=== PATIENT | male | born 1990 | race African-American/Black ===

== ENCOUNTER 2018-03-21 15:12 | Inpatient (IN) | payer OTHER ==
[2018-03-21 18:28] VITALS: BMI 24.3
--- NOTE | 2018-03-21 20:44 | HP ---
COWS - Scale Resting Pulse: 0= [place] 80 or Below Sweatin=Flushed/Facial Moisture Restless Observation: 0= Sits Still Pupil Size: 0= Normal to Room Light Bone or Joint Aches: 2= Severe Diffuse Aches Runny Nose/ Eye Tearin= Runny Nose/Eyes GI Upset > 30mins: 2= Nausea/Diarrhea (diarrhea) Tremor Observation: 4= Gross Tremor/Twitching Yawning Observation: 0= None Anxiety or Irritability: 2=Irritable/Anxious Goose Flesh Skin: 3=Piloerection COWS Score: 17 Admission [facility] Chief Complaint: Heroin withdrawal symptoms Allergies/Adverse Reactions: Allergies Allergy/AdvReac Type Severity Reaction Status Date / Time No Known Allergies Allergy Verified 03/21/18 18:55 History of Present Illness: 27 years old male with 10 years of heroin dependence is seeking admission to detox. Patient was in detox here at [facility] in December and reports insignificant period of sobriety. He reports medical history of depression and suicide attempt at age 20. Patient denies suicidal ideation at this time. Exam Limitations: No Limitations - Ebola screening Have you traveled outside of the country in the last 21 days: No Have you had contact with anyone from an Ebola affected area: No Have you been sick,other than usual withdrawal symptoms: No Do you have a fever: No - Review of Systems Constitutional: Chills, Loss of Appetite, Malaise, Changes in sleep EENT: reports: No Symptoms Reported Respiratory: reports: No Symptoms reported Cardiac: reports: No Symptoms Reported GI: reports: Diarrhea (x 2), Poor Appetite, Poor Fluid Intake, Abdominal cramping : reports: No Symptoms Reported Musculoskeletal: reports: No Symptoms Reported Integumentary: reports: Dryness, Flushing Neuro: reports: Tremors Endocrine: reports: No Symptoms Reported Hematology: reports: No Symptoms Reported Psychiatric: reports: Depressed Other Systems: Reviewed and Negative Patient History - Patient Medical History Hx Anemia: No Hx Asthma: No Hx Chronic Obstructive Pulmonary Disease (COPD): No Hx Cardiac Disorders: No Hx Congestive Heart Failure: No Hx Hypertension: No Hx Hypercholesterolemia: No HX Cerebrovascular Accident: No Hx Seizures: No Hx Dementia: No Hx Diabetes: No Hx Gastrointestinal Disorders: No Hx Liver Disease: No Hx Genitourinary Disorders: No Hx Sexually Transmitted Disorders: No Hx Renal Disease (ESRD): No Hx Thyroid Disease: No Hx Human Immunodeficiency Virus (HIV): No (Negative 2016) Hx Hepatitis C: No Hx Depression: Yes (Depakote) Hx Suicide Attempt: No Hx Bipolar Disorder: No Hx Schizophrenia: Yes (Prolexin) - Patient Surgical History Past Surgical History: No Hx Neurologic Surgery: No Hx Cataract Extraction: No Hx Cardiac Surgery: No Hx Lung Surgery: No Hx Abdominal Surgery: No Hx Appendectomy: No Hx Cholecystectomy: No Hx Genitourinary Surgery: No Hx Section: No Hx Orthopedic Surgery: No Anesthesia Reaction: No - PPD History Previous Implant?: Yes Documented Results: Negative w/proof Date: 12/06/17 Results: 0 MM PPD to be Administered?: No - Reproductive History Patient is a Female of Child Bearing Age (11 -55 yrs old): No (Male) - Smoking Cessation Smoking history: Current every day smoker Have you smoked in the past 12 months: Yes Aproximately how many cigarettes per day: 10 Hx Chewing Tobacco Use: No Initiated information on smoking cessation: Yes 'Breaking Loose' booklet given: 03/21/18 - Substance & Tx. History Hx Alcohol Use: No Hx Substance Use: Yes Substance Use Type: Cocaine, Heroin Hx Substance Use Treatment: Yes ([facility]) - Substances Abused Heroin Route: Inhalation Frequency: Daily Amount used: 7 BAGS Age of first use: 17 Date of Last Use: 03/19/18 Crack Amount used: 10 BAGS Age of first use: 15 Date of Last Use: 03/21/18 Marijuana/Hashish Route: Smoking Frequency: Daily Amount used: 2 [place] Age of first use: 15 Date of Last Use: 03/20/18 Family Disease History - Family Disease History Family Disease History: Other: Father (HIV+ - ), Mother (HIV+- ) , Sister (HIV+) Admission Physical Exam BHS - Vital Signs Vital Signs: Vital Signs - 24 hr 03/21/18 18:25 Temperature 98.3 F Pulse Rate 72 Respiratory 18 Rate Blood Pressure 140/76 - Physical General Appearance: Yes: Moderate Distress, Tremorous, Irritable, Anxious HEENTM: Yes: EOMI, Normal ENT Inspection, Normocephalic, Normal Voice, BALTAZAR Respiratory: Yes: Lungs Clear, Normal Breath Sounds, No Respiratory Distress Neck: Yes: Supple Breast: Yes: Breast Exam Deferred Cardiology: Yes: Regular Rhythm, Regular Rate Abdominal: Yes: Normal Bowel Sounds Genitourinary: Yes: Within Normal Limits Back: Yes: Normal Inspection Musculoskeletal: Yes: Within Normal Limits Extremities: Yes: Tremors 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 NML intact, Alert, Normal Mood/Affect Integumentary: Yes: Warm Lymphatic: Yes: Within Normal Limits - Diagnostic (1) Depression Current Visit: Yes Status: Chronic Qualifiers: Depression Type: unspecified Qualified Code(s): F32.9 - Major depressive disorder, single episode, unspecified (2) Cannabis dependence Current Visit: Yes Status: Chronic (3) Cocaine dependence, uncomplicated Current Visit: Yes Status: Chronic (4) Opioid dependence with withdrawal Current Visit: Yes Status: Chronic (5) Nicotine dependence Current Visit: No Status: Chronic Qualifiers: Nicotine product type: cigarettes Substance use status: in withdrawal Qualified Code(s): F17.213 - Nicotine dependence, cigarettes, with withdrawal Cleared for Admission [facility] - Detox or Rehab [facility] Level of Care: Medically Managed Detox Regimen/Protocol: Methadone [facility] Breath Alcohol Content Breath Alcohol Content: 0 Urine Drug Screen - Results Drug Screen Negative: No Urine Drug Screen Results: THC-Marijuana, CHIRAG-Cocaine, OPI-Opiates
[2018-03-21] MEDS ORDERED: MAG HYDROX/AL HYDROX/SIMETH 30 ML UNIT-DOSE CUP PO PRN (20:52)
[2018-03-21] MEDS ORDERED: MAGNESIUM HYDROX 2400MG/30ML ORAL SUSPENSION 30 ML CUP PO PRN (20:52)
[2018-03-21] MEDS ORDERED: guaiFENesin/D-METHORPHAN HB 10 ML UNIT-DOSE CUPS PO PRN (20:52)
[2018-03-21] MEDS ORDERED: LOPERAMIDE HCL 2 MG CAPSULE PO PRN (20:52)
[2018-03-21] MEDS ORDERED: diazePAM 5 MG TABLET PO PRN (20:52)
[2018-03-21] MEDS ORDERED: MENTHOL/PHENOL 1 EACH UD MM PRN (20:52)
[2018-03-21] MEDS ORDERED: ACETAMINOPHEN 325 MG TABLET (FP) PO PRN (20:52)
[2018-03-21] MEDS ORDERED: NICOTINE POLACRILEX 2 MG GUM BC PRN (20:52)
[2018-03-21] MEDS ORDERED: MAGNESIUM CITRATE 300 ML BOTTLE PO PRN (20:52)
[2018-03-21] MEDS ORDERED: IBUPROFEN 400 MG TABLET (FP) PO PRN (20:52)
[2018-03-21] MEDS ORDERED: METHADONE HCL 10 MG TABLET (FOR DETOX USE ONLY) PO ONE ×2 (20:52→23:00)
[2018-03-21] MEDS ORDERED: P-EPHED 60MG/TRIPROLIDI 2.5MG TABLET PO PRN (20:52)
--- NOTE | 2018-03-21 20:58 | HP ---
COWS - Scale Resting Pulse: 0= [place] 80 or Below Sweatin=Flushed/Facial Moisture Restless Observation: 0= Sits Still Pupil Size: 0= Normal to Room Light Bone or Joint Aches: 2= Severe Diffuse Aches Runny Nose/ Eye Tearin= Runny Nose/Eyes GI Upset > 30mins: 2= Nausea/Diarrhea (diarrhea) Tremor Observation: 4= Gross Tremor/Twitching Yawning Observation: 0= None Anxiety or Irritability: 2=Irritable/Anxious Goose Flesh Skin: 3=Piloerection COWS Score: 17 Admission ROS S - HPI Allergies/Adverse Reactions: Allergies Allergy/AdvReac Type Severity Reaction Status Date / Time No Known Allergies Allergy Verified 03/21/18 18:55 - Ebola screening Have you traveled outside of the country in the last 21 days: No Have you had contact with anyone from an Ebola affected area: No Have you been sick,other than usual withdrawal symptoms: No Do you have a fever: No Patient History - Patient Medical History Hx Anemia: No Hx Asthma: No Hx Chronic Obstructive Pulmonary Disease (COPD): No Hx Cardiac Disorders: No Hx Congestive Heart Failure: No Hx Hypertension: No Hx Hypercholesterolemia: No HX Cerebrovascular Accident: No Hx Seizures: No Hx Dementia: No Hx Diabetes: No Hx Gastrointestinal Disorders: No Hx Liver Disease: No Hx Genitourinary Disorders: No Hx Sexually Transmitted Disorders: No Hx Renal Disease (ESRD): No Hx Thyroid Disease: No Hx Human Immunodeficiency Virus (HIV): No (Negative 2016) Hx Hepatitis C: No Hx Depression: Yes (Depakote) Hx Suicide Attempt: No Hx Bipolar Disorder: No Hx Schizophrenia: Yes (Prolexin) - Patient Surgical History Past Surgical History: No Hx Neurologic Surgery: No Hx Cataract Extraction: No Hx Cardiac Surgery: No Hx Lung Surgery: No Hx Breast Surgery: No Hx Breast Biopsy: No Hx Abdominal Surgery: No Hx Appendectomy: No Hx Cholecystectomy: No Hx Genitourinary Surgery: No Hx Section: No Hx Orthopedic Surgery: No Anesthesia Reaction: No - PPD History Previous Implant?: Yes Documented Results: Negative w/proof Date: 12/06/17 Results: 0 MM - Smoking Cessation Smoking history: Current every day smoker Have you smoked in the past 12 months: Yes Aproximately how many cigarettes per day: 10 Hx Chewing Tobacco Use: No Initiated information on smoking cessation: Yes - Substances Abused Heroin Route: Inhalation Frequency: Daily Amount used: 7 BAGS Age of first use: 17 Date of Last Use: 03/19/18 Crack Amount used: 10 BAGS Age of first use: 15 Date of Last Use: 03/21/18 Marijuana/Hashish Route: Smoking Frequency: Daily Amount used: 2 [place] Age of first use: 15 Date of Last Use: 03/20/18 Family Disease History - Family Disease History Family Disease History: Other: Father (HIV+ - ), Mother (HIV+- ) , Sister (HIV+) Admission Physical Exam BHS - Vital Signs Vital Signs: Vital Signs - 24 hr 03/21/18 18:25 Temperature 98.3 F Pulse Rate 72 Respiratory 18 Rate Blood Pressure 140/76 - Diagnostic (1) Depression Current Visit: Yes Status: Chronic Qualifiers: Depression Type: unspecified Qualified Code(s): F32.9 - Major depressive disorder, single episode, unspecified (2) Cannabis dependence Current Visit: Yes Status: Chronic (3) Cocaine dependence, uncomplicated Current Visit: Yes Status: Chronic (4) Opioid dependence with withdrawal Current Visit: Yes Status: Chronic (5) Nicotine dependence Current Visit: No Status: Chronic Qualifiers: Nicotine product type: cigarettes Substance use status: in withdrawal Qualified Code(s): F17.213 - Nicotine dependence, cigarettes, with withdrawal BHS Breath Alcohol Content Breath Alcohol Content: 0 Urine Drug Screen - Results Drug Screen Negative: No Urine Drug Screen Results: THC-Marijuana, CHIRAG-Cocaine, OPI-Opiates
[2018-03-21] MEDS ORDERED: MELATONIN 5 MG TABLETS PO PRN (22:00)
[2018-03-21] MEDS: THIAMINE HCL 100 MG TABLET (FP) PO SCH (22:12)
[2018-03-21 23:59] LABS: URINE APPEARANCE SLCLOUDY; URINE BILIRUBIN NEGATIVE (<2.0 mg/dL); URINE COLOR DKYELLOW; URINE GLUCOSE (UA) NEGATIVE (NEGATIVE); URINE KETONE 1+ (NEGATIVE); URINE LEUK ESTERASE NEGATIVE (NEGATIVE); URINE NITRITE NEGATIVE (NEGATIVE); URINE PROTEIN 1+ (NEGATIVE)
[2018-03-22 00:23] LABS: TRIPLE PHOSPHATE CRYSTAL RARE /hpf (NONE SEEN); URINE MUCUS RARE
[2018-03-22] MEDS ORDERED: METHADONE HCL 10 MG TABLET (FOR DETOX USE ONLY) PO ONE (10:00)
[2018-03-22] MEDS: NICOTINE 14 MG/24 HOURS TOPICAL PATCH TD SCH (10:15)
[2018-03-22] MEDS: PRENATAL VITAMINS W/ FOLIC ACID TABLET (FP) PO SCH (10:15)
[2018-03-22 10:22] LABS: HEMATOCRIT 41.5 % (35.4-49); HEMOGLOBIN 13.3 GM/dL (11.7-16.9); MCH 31.2 pg (25.7-33.7); MCHC 31.9 g/dl (32.0-35.9); MEAN CELL VOLUME 97.6 fl (80-96); MEAN PLT VOLUME 8.3 fl (7.5-11.1); PLATELET COUNT 154 K/MM3 (134-434); RBC 4.25 M/mm3 (4.00-5.60); RDW 12.9 % (11.9-15.9); WHITE BLOOD COUNT 6.1 K/mm3 (4.0-10.0)
--- NOTE | 2018-03-22 11:00 | CONSULT ---
[facility] Psychiatric Consult - Data Date of interview: 03/22/18 Admission source: [facility] Identifying data: Patient is a 27 year old single male, without children, domiciled, unemployed, and is supported by [facility]. This is one of multiple admissions for patient. Patient admitted to for opioid dependence. Substance Abuse History: Smoking Cessation. Smoking history: Current every day smoker. Have you smoked in the past 12 months: Yes. Aproximately how many cigarettes per day: 10. Hx Chewing Tobacco Use: No. Initiated information on smoking cessation: Yes. 'Breaking Loose' booklet given: 03/21/18. - Substance & Tx. History. Hx Alcohol Use: No. Hx Substance Use: Yes. Substance Use Type : Cocaine, Heroin. Hx Substance Use Treatment: Yes ([facility]). - Substances Abused. Heroin. Route: Inhalation. Frequency: Daily. Amount used: 7 BAGS. Age of first use: 17. Date of Last Use: 03/19/18. Crack. Amount used: 10 BAGS. Age of first use: 15. Date of Last Use: 03/21/18. Marijuana /Hashish. Route: Smoking. Frequency: Daily. Amount used: 2 [place]. Age of first use: 15. Date of Last Use: 03/20/18 Medical History: denies. Psychiatric History: Patient reports his first psychiatric contact occuring at the age of 16 after he endorsed auditory hallucinations. He was hospitalized and started on haldol. Patient reports multiple psychiatric hospitalizations, most recently on 02/2018 at [facility] for auditory hallucincations. Patient is also known to [facility]. Patients reports being prescribed prolixen 5mg BID + Cogentin 0.5mg BID + Depakote 500mg BID. Current outpatient psychiatric services is provided at [facility] outpatient clinic. Patient reports one suicide attempt via overdose. At present, he reports feeling well. He denies psychotic, manic, or depressive symptoms. States his current medication regime works well for him. Physical/Sexual Abuse/Trauma History: denies. Mental Status Exam - Mental Status Exam Alert and Oriented to: Time, Place, Person Cognitive Function: Good Patient Appearance: Well Groomed Mood: Euthymic Affect: Mood Congruent Patient Behavior: Cooperative Speech Pattern: Appropriate Voice Loudness: Normal Thought Process: Intact, Goal Oriented Thought Disorder: Not Present Hallucinations: Denies Suicidal Ideation: Denies Homicidal Ideation: Denies Insight/Judgement: Poor Sleep: Poorly Muscle strength/Tone: Normal Gait/Station: Normal Psychiatric Findings - Problem List ([place] 1, 2,3) (1) Cannabis dependence Current Visit: Yes Status: Chronic (2) Opioid dependence with withdrawal Current Visit: Yes Status: Acute (3) Schizoaffective disorder Current Visit: Yes Status: Chronic Comment: As per self-report.Connected to [facility] psychiatric OPD clinic.On medications.Adherence : questionable. (4) Cocaine dependence, uncomplicated Current Visit: Yes Status: Chronic - Initial Treatment Plan Initial Treatment Plan: Psychoeducation provided. Detoxification in progress. Will order Prolixen 5mg BID + Cogentin 0.5mg BID + Depakote 500mg BID. Valproic level ordered for 03/23/18. Benefits and side effects discussed. Verbal consent given.
[2018-03-22 11:28] LABS: ALBUMIN 3.6 g/dl (3.4-5.0); ALK PHOS 45 U/L (45-117); ANION GAP 8 MMOL/L (8-16); BILIRUBIN,TOTAL 0.5 mg/dL (0.2-1); BLOOD UREA NITROGEN 13 mg/dL (7-18); CALCIUM 8.3 mg/dL (8.5-10.1); CHLORIDE 107 mmol/L (98-107); CO2 29 mmol/L (21-32); CREATININE 0.9 mg/dL (0.55-1.3); GLUCOSE,RANDOM 103 mg/dL (74-106); POTASSIUM 4.3 mmol/L (3.5-5.1); SGOT/AST 23 U/L (15-37); SGPT/ALT 34 U/L (13-61); SODIUM 144 mmol/L (136-145); TOT PROT 6.3 g/dl (6.4-8.2)
[2018-03-22] MEDS: BENZTROPINE MESYLATE 1 MG TABLET (FP) PO SCH ×2 (11:48→22:03)
--- NOTE | 2018-03-22 12:00 | PN ---
BHS COWS - Scale Resting Pulse: 0= [place] 80 or Below Sweatin=Flushed/Facial Moisture Restless Observation: 1= Difficult to Sit Still Pupil Size: 0= Normal to Room Light Bone or Joint Aches: 2= Severe Diffuse Aches Runny Nose/ Eye Tearin= Nasal Congestion GI Upset > 30mins: 1= Stomach Cramp Tremor Observation of Outstretched Hands: 2= Slight Tremor Visible Yawning Observation: 2= >3x During Session Anxiety or Irritability: 2=Irritable/Anxious Goose Flesh Skin: 0=Smooth Skin COWS Score: 13 BHS Progress Note (SOAP) Subjective: shakes sweats interrupted sleep agitation chills Objective: 03/22/18 11:59 Vital Signs Temperature 97.7 F 03/22/18 09:32 Pulse Rate 61 03/22/18 09:32 Respiratory Rate 18 03/22/18 09:32 Blood Pressure 117/64 03/22/18 09:32 O2 Sat by Pulse Oximetry (%) Laboratory Tests 03/21/18 03/22/18 03/22/18 22:22 07:00 07:00 WBC 6.1 RBC 4.25 Hgb 13.3 Hct 41.5 MCV 97.6 H MCH 31.2 MCHC 31.9 L RDW 12.9 Plt Count 154 MPV 8.3 Sodium 144 Potassium 4.3 Chloride 107 Carbon Dioxide 29 Anion Gap 8 BUN 13 Creatinine 0.9 Creat Clearance w eGFR > 60 Random Glucose 103 Calcium 8.3 L Total Bilirubin 0.5 AST 23 ALT 34 Alkaline Phosphatase 45 Total Protein 6.3 L Albumin 3.6 Urine Color Dkyellow Urine Appearance Slcloudy Urine pH 7.0 Ur Specific [place] 1.028 Urine Protein 1+ H Urine Glucose (UA) Negative Urine Ketones 1+ H Urine Blood Negative Urine Nitrite Negative Urine Bilirubin Negative Urine Urobilinogen 2.0 Ur Leukocyte Esterase Negative Urine WBC (Auto) 2 Urine RBC (Auto) 1 Triple Phos Crystals Rare Urine Mucus Rare aaox3 ambulating no acute distress increase fluids Assessment: 03/22/18 12:00 withdrawal sx Plan: continue detox increase fluids
--- NOTE | 2018-03-22 13:00 | EKG ---
Test Reason : Blood Pressure : / mmHG Vent. Rate : 056 BPM Atrial Rate : 056 BPM P-R Int : 152 ms QRS Dur : 076 ms QT Int : 396 ms P-R-T Axes : 048 078 043 degrees QTc Int : 382 ms SINUS BRADYCARDIA WITH MARKED SINUS ARRHYTHMIA PREMATURE ATRIAL COMPLEXES OTHERWISE NORMAL ECG Confirmed by MD HARVEY, NNEKA ([id number]) on 03/22/2018 12:59:49 PM Referred By: Confirmed By:NNEKA GABRIEL MD
[2018-03-22] MEDS: DIVALPROEX SODIUM 500 MG TABLET E.C. PO SCH (22:03)
[2018-03-22] MEDS: THIAMINE HCL 100 MG TABLET (FP) PO SCH (22:03)
[2018-03-23] MEDS ORDERED: METHADONE HCL 5 MG TABLET (FOR DETOX USE ONLY) PO ONE (10:00)
[2018-03-23] MEDS: PRENATAL VITAMINS W/ FOLIC ACID TABLET (FP) PO SCH (10:41)
[2018-03-23] MEDS: DIVALPROEX SODIUM 500 MG TABLET E.C. PO SCH ×2 (10:41→22:25)
[2018-03-23] MEDS: NICOTINE 14 MG/24 HOURS TOPICAL PATCH TD SCH (10:42)
[2018-03-23] MEDS: BENZTROPINE MESYLATE 1 MG TABLET (FP) PO SCH ×2 (10:42→22:25)
--- NOTE | 2018-03-23 12:28 | PN ---
BHS COWS - Scale Resting Pulse: 1= [place] 81-100 Sweatin= Chills/Flushing Restless Observation: 0= Sits Still Pupil Size: 0= Normal to Room Light Bone or Joint Aches: 2= Severe Diffuse Aches Runny Nose/ Eye Tearin= Nasal Congestion GI Upset > 30mins: 1= Stomach Cramp Tremor Observation of Outstretched Hands: 2= Slight Tremor Visible Yawning Observation: 2= >3x During Session Anxiety or Irritability: 1=Feels Anxious/Irritable Goose Flesh Skin: 0=Smooth Skin COWS Score: 11 BHS Progress Note (SOAP) Subjective: agitation sweats interrupted sleep body aches Objective: 03/23/18 12:26 Vital Signs Temperature 97.7 F 03/23/18 09:33 Pulse Rate 54 L 03/23/18 09:33 Respiratory Rate 16 03/23/18 09:33 Blood Pressure 108/63 03/23/18 09:33 O2 Sat by Pulse Oximetry (%) Laboratory Tests 03/21/18 03/22/18 03/22/18 22:22 07:00 07:00 WBC 6.1 RBC 4.25 Hgb 13.3 Hct 41.5 MCV 97.6 H MCH 31.2 MCHC 31.9 L RDW 12.9 Plt Count 154 MPV 8.3 Sodium 144 Potassium 4.3 Chloride 107 Carbon Dioxide 29 Anion Gap 8 BUN 13 Creatinine 0.9 Creat Clearance w eGFR > 60 Random Glucose 103 Calcium 8.3 L Total Bilirubin 0.5 AST 23 ALT 34 Alkaline Phosphatase 45 Total Protein 6.3 L Albumin 3.6 Urine Color Dkyellow Urine Appearance Slcloudy Urine pH 7.0 Ur Specific [place] 1.028 Urine Protein 1+ H Urine Glucose (UA) Negative Urine Ketones 1+ H Urine Blood Negative Urine Nitrite Negative Urine Bilirubin Negative Urine Urobilinogen 2.0 Ur Leukocyte Esterase Negative Urine WBC (Auto) 2 Urine RBC (Auto) 1 Triple Phos Crystals Rare Urine Mucus Rare RPR Titer 03/22/18 07:00 WBC RBC Hgb Hct MCV MCH MCHC RDW Plt Count MPV Sodium Potassium Chloride Carbon Dioxide Anion Gap BUN Creatinine Creat Clearance w eGFR Random Glucose Calcium Total Bilirubin AST ALT Alkaline Phosphatase Total Protein Albumin Urine Color Urine Appearance Urine pH Ur Specific [place] Urine Protein Urine Glucose (UA) Urine Ketones Urine Blood Urine Nitrite Urine Bilirubin Urine Urobilinogen Ur Leukocyte Esterase Urine WBC (Auto) Urine RBC (Auto) Triple Phos Crystals Urine Mucus RPR Titer Nonreactive aaox3 ambulating no acute distress 03/23/18 12:29 Assessment: 03/23/18 12:29 mild withdrawal sx Plan: continue detox increase fluids
[2018-03-23] MEDS: THIAMINE HCL 100 MG TABLET (FP) PO SCH (22:25)
[2018-03-24] MEDS ORDERED: METHADONE HCL 5 MG TABLET (FOR DETOX USE ONLY) PO ONE (10:00)
[2018-03-24] MEDS: PRENATAL VITAMINS W/ FOLIC ACID TABLET (FP) PO SCH (10:08)
[2018-03-24] MEDS: NICOTINE 14 MG/24 HOURS TOPICAL PATCH TD SCH (10:08)
[2018-03-24] MEDS: DIVALPROEX SODIUM 500 MG TABLET E.C. PO SCH ×2 (10:08→22:20)
[2018-03-24] MEDS: BENZTROPINE MESYLATE 1 MG TABLET (FP) PO SCH ×2 (10:09→22:20)
--- NOTE | 2018-03-24 10:32 | PN ---
BHS Progress Note (SOAP) Subjective: feeling better little sweats anxiety Objective: 03/24/18 10:31 Vital Signs Temperature 97.9 F 03/24/18 09:55 Pulse Rate 57 L 03/24/18 09:55 Respiratory Rate 17 03/24/18 09:55 Blood Pressure 113/61 03/24/18 09:55 O2 Sat by Pulse Oximetry (%) aaox3 ambulating no acute distress Assessment: 03/24/18 10:32 withdrawal sx Plan: continue detox increase fluids
[2018-03-24] MEDS: THIAMINE HCL 100 MG TABLET (FP) PO SCH (22:19)
[2018-03-25] MEDS ORDERED: METHADONE HCL 10 MG TABLET (FOR DETOX USE ONLY) PO ONE (10:00)
[2018-03-25] MEDS: DIVALPROEX SODIUM 500 MG TABLET E.C. PO SCH ×2 (10:25→22:11)
[2018-03-25] MEDS: PRENATAL VITAMINS W/ FOLIC ACID TABLET (FP) PO SCH (10:25)
[2018-03-25] MEDS: NICOTINE 14 MG/24 HOURS TOPICAL PATCH TD SCH (10:26)
[2018-03-25] MEDS: BENZTROPINE MESYLATE 1 MG TABLET (FP) PO SCH ×2 (10:26→22:11)
--- NOTE | 2018-03-25 10:31 | PN ---
BHS Progress Note (SOAP) Subjective: anxiety feeling better Objective: 03/25/18 10:31 Vital Signs Temperature 97.9 F 03/25/18 09:24 Pulse Rate 59 L 03/25/18 09:24 Respiratory Rate 17 03/25/18 09:24 Blood Pressure 123/71 03/25/18 09:24 O2 Sat by Pulse Oximetry (%) aaox3 ambulating no acute distress Assessment: 03/25/18 10:31 mild withdrawal sx Plan: continue detox increase fluids d/c in am
[2018-03-25] MEDS: THIAMINE HCL 100 MG TABLET (FP) PO SCH (22:10)
[2018-03-26] MEDS ORDERED: METHADONE HCL 5 MG TABLET (FOR DETOX USE ONLY) PO ONE (06:00)
[2018-03-26] MEDS: BENZTROPINE MESYLATE 1 MG TABLET (FP) PO SCH (09:26)
[2018-03-26] MEDS: PRENATAL VITAMINS W/ FOLIC ACID TABLET (FP) PO SCH (09:26)
[2018-03-26] MEDS: NICOTINE 14 MG/24 HOURS TOPICAL PATCH TD SCH (09:26)
[2018-03-26] MEDS: DIVALPROEX SODIUM 500 MG TABLET E.C. PO SCH (09:26)
[2018-03-26 09:30] VITALS: BP 119/57; PULSE 53; TEMP 97.9
== END 2018-03-26 12:13 | disposition home or self-care (01) | DRG 773 ==
LOC: YASAS 15:12 → Y6N 20:24
PROC: HZ2ZZZZ Detoxification Services for Substance Abuse Treatment (ICD-10-PCS; principal; 2018-03-21)
DX: F11.23 Opioid dependence with withdrawal (principal); F14.20 Cocaine dependence, uncomplicated; F12.20 Cannabis dependence, uncomplicated; F17.213 Nicotine dependence, cigarettes, with withdrawal; F25.9 Schizoaffective disorder, unspecified; F32.9 Major depressive disorder, single episode, unspecified; Z91.5 Personal history of self-harm
CPT/HCPCS: 36415; 80053; 80164; 81003; 81015; 85027; 86593; 93005; 93010

== ENCOUNTER 2019-02-06 10:38 | Inpatient (IN) | payer OTHER ==
[2019-02-06 13:19] VITALS: BMI 25.1
--- NOTE | 2019-02-06 13:38 | HP ---
COWS - Scale Resting Pulse: 0= [place] 80 or Below Sweatin= Chills/Flushing Restless Observation: 1= Difficult to Sit Still Pupil Size: 1= Pupils >than Normal Bone or Joint Aches: 2= Severe Diffuse Aches Runny Nose/ Eye Tearin= Runny Nose/Eyes GI Upset > 30mins: 2= Nausea/Diarrhea Tremor Observation: 2= Slight Tremor Visible Yawning Observation: 1= 1-2x During Session Anxiety or Irritability: 2=Irritable/Anxious Goose Flesh Skin: 0=Smooth Skin COWS Score: 14 CIWA Score Nausea/Vomitin Muscle Tremors: 2 Anxiety: 3 Agitation: 3 Paroxysmal Sweats: 1-Minimal Palms Moist Orientation: 0-Oriented Tacttile Disturbances: 1-Very Mild Itch/Numbness Auditory Disturbances: 0-None Visual Disturbances: 0-None Headache: 2-Mild CIWA-Ar Total Score: 14 - Admission Criteria OASAS Guidelines: Admission for Medically Managed Detox: Requires at least one of the followin. CIWA greater than 12 2. Seizures within the past 24 hours 3. Delirium tremens within the past 24 hours 4. Hallucinations within the past 24 hours 5. Acute intervention needed for co occurring medical disorder 6. Acute intervention needed for co occurring psychiatric disorder 7. Severe withdrawal that cannot be handled at a lower level of care (continued vomiting, continued diarrhea, abnormal vital signs) requiring intravenous medication and/or fluids 8. Admission ROS [facility] Chief Complaint: to stop using heroin ,alcohol,drugs Allergies/Adverse Reactions: Allergies Allergy/AdvReac Type Severity Reaction Status Date / Time No Known Allergies Allergy Verified 02/06/19 13:07 History of Present Illness: this 28 years old male with heroin and alcohol dependence,also using cocaine and marijuana, withdrawal symptom,seeking detox multiple admissions in detox last [facility] 03/21/18 to 03/26/18 seeking detox denied seizure,denied syncope schizoaffective disorder no significant period of sobriety nicotine dependence 6 cigarette,would like to have gum replacement Exam Limitations: No Limitations - Ebola screening Have you traveled outside of the country in the last 21 days: No (N) Have you had contact with anyone from an Ebola affected area: No Do you have a fever: No - Review of Systems Constitutional: Loss of Appetite, Night Sweats, Changes in sleep EENT: reports: Tearing, Nose Congestion Respiratory: reports: No Symptoms reported GI: reports: Diarrhea, Nausea, Poor Appetite, Vomiting : reports: No Symptoms Reported Musculoskeletal: reports: Back Pain, Muscle Pain Integumentary: reports: Dryness Neuro: reports: Headache, Tremors Endocrine: reports: No Symptoms Reported Hematology: reports: No Symptoms Reported Psychiatric: reports: No Sypmtoms Reported, Judgement Intact, Mood/Affect Appropiate, Orientated x3, other (schizoaffective disorder) Other Systems: Reviewed and Negative Patient History - Patient Medical History Hx Anemia: No Hx Asthma: No Hx Chronic Obstructive Pulmonary Disease (COPD): No Hx Cancer: No Hx Cardiac Disorders: No Hx Congestive Heart Failure: No Hx Hypertension: No Hx Hypercholesterolemia: No HX Cerebrovascular Accident: No Hx Seizures: No Hx Dementia: No Hx Diabetes: No Hx Gastrointestinal Disorders: No Hx Liver Disease: No Hx Genitourinary Disorders: No Hx Sexually Transmitted Disorders: No Hx Renal Disease (ESRD): No Hx Thyroid Disease: No Hx Human Immunodeficiency Virus (HIV): No (Negative 2016) Hx Hepatitis C: No Hx Depression: Yes (Depakote) Hx Suicide Attempt: No Hx Bipolar Disorder: No Hx Schizophrenia: Yes (on invega injection monthly last 01/18/19) Other Medical History: no suicidal,no homicidal - Patient Surgical History Past Surgical History: No Hx Neurologic Surgery: No Hx Cataract Extraction: No Hx Cardiac Surgery: No Hx Lung Surgery: No Hx Breast Surgery: No Hx Breast Biopsy: No Hx Abdominal Surgery: No Hx Appendectomy: No Hx Cholecystectomy: No Hx Genitourinary Surgery: No Hx Section: No Hx Orthopedic Surgery: No Anesthesia Reaction: No - PPD History Previous Implant?: Yes Documented Results: Negative w/proof Implanted On Prior [facility] Admission?: Yes Date: 12/06/17 Results: 0 MM PPD to be Administered?: No - Smoking Cessation Smoking history: Current every day smoker Have you smoked in the past 12 months: Yes Aproximately how many cigarettes per day: 6 Hx Chewing Tobacco Use: No Initiated information on smoking cessation: Yes 'Breaking Loose' booklet given: 02/06/19 - Substance & Tx. History Hx Alcohol Use: Yes Hx Substance Use: Yes Substance Use Type: Alcohol, Heroin Hx Substance Use Treatment: Yes ([facility] 03/21/18 to 03/26/18) - Substances abused Heroin Substance route: Inhalation Frequency: Daily Amount used: 3 bags Age of first use: 27 Date of last use: 02/05/19 Alcohol Substance route: Oral Frequency: Daily Amount used: 1 pint of vodka/ 2 of 24 oz of beer Age of first use: 15 Date of last use: 02/05/19 Cocaine Substance route: Smoking Frequency: Daily Amount used: 40$ Age of first use: 25 Date of last use: 02/05/19 Marijuana/Hashish Substance route: Smoking Frequency: Daily Amount used: 10$ Age of first use: 15 Date of last use: 02/04/19 Family Disease History - Family Disease History Family Disease History: Other: Father (HIV+ - ), Mother (HIV+- ) , Sister (HIV+) Admission Physical Exam [facility] - Vital Signs Vital Signs: Vital Signs - 24 hr 02/06/19 13:11 Temperature 97.7 F Pulse Rate 72 Respiratory 18 Rate Blood Pressure 126/71 - Physical General Appearance: Yes: Moderate Distress, Tremorous, Irritable, Sweating, Anxious HEENTM: Yes: Normal ENT Inspection, BALTAZAR, Pharynx Normal Respiratory: Yes: Within Normal Limits, Lungs Clear, Normal Breath Sounds Neck: Yes: Within Normal Limits, Supple, Trachea in good position Breast: Yes: Within Normal Limits Cardiology: Yes: Within Normal Limits, Regular Rhythm, Regular Rate Abdominal: Yes: Within Normal Limits, Normal Bowel Sounds, Non Tender, Flat, Soft Genitourinary: Yes: Within Normal Limits Back: Yes: Muscle Spasm Musculoskeletal: Yes: Back pain, Muscle Pain Extremities: Yes: Tremors Integumentary: Yes: Dry - Diagnostic (1) Opioid dependence with withdrawal Current Visit: No Status: Acute (2) Alcohol dependence with uncomplicated withdrawal Current Visit: No Status: Acute (3) Cocaine dependence Current Visit: Yes Status: Acute (4) Cannabis dependence Current Visit: Yes Status: Acute (5) Nicotine dependence Current Visit: Yes Status: Acute (6) Schizoaffective disorder Current Visit: Yes Status: Acute Cleared for Admission [facility] - Detox or Rehab [facility] Level of Care: Medically Managed Detox Regimen/Protocol: Methadone/Librium Inpatient Rehab Admission - Rehab Decision to Admit Inpatient rehab admission?: No
[2019-02-06] MEDS ORDERED: MAGNESIUM HYDROX 2400MG/30ML ORAL SUSPENSION 30 ML CUP PO PRN (13:49)
[2019-02-06] MEDS ORDERED: chlordiazePOXIDE HCL 25 MG CAPSULE PO PRN (13:49)
[2019-02-06] MEDS ORDERED: BISMUTH SUBSALICYLATE 262 MG/15 ML BTL PO PRN (13:49)
[2019-02-06] MEDS ORDERED: MELATONIN 5 MG TABLETS PO PRN (13:49)
[2019-02-06] MEDS ORDERED: MAGNESIUM CITRATE 300 ML BOTTLE PO PRN (13:49)
[2019-02-06] MEDS ORDERED: cloNIDine HCL 0.1 MG TABLET PO PRN (13:49)
[2019-02-06] MEDS ORDERED: IBUPROFEN 400 MG TABLET (FP) PO PRN (13:49)
[2019-02-06] MEDS ORDERED: METHOCARBAMOL 500 MG TABLET PO PRN (13:49)
[2019-02-06] MEDS ORDERED: ACETAMINOPHEN 325 MG TABLET (FP) PO PRN ×2 (13:49)
[2019-02-06] MEDS ORDERED: MENTHOL/PHENOL 1 EACH UD MM PRN (13:49)
[2019-02-06] MEDS ORDERED: hydrOXYzine PAMOATE 25 MG CAPSULE (FP) PO PRN (13:49)
[2019-02-06] MEDS ORDERED: METHADONE HCL 10 MG TABLET (FOR DETOX USE ONLY) PO ONE (15:15)
[2019-02-06 16:58] LABS: HEMATOCRIT 41.6 % (35.4-49); HEMOGLOBIN 13.8 GM/dL (11.7-16.9); MCH 32.5 pg (25.7-33.7); MCHC 33.2 g/dl (32.0-35.9); MEAN CELL VOLUME 97.9 fl (80-96); PLATELET COUNT 226 K/MM3 (134-434); RBC 4.25 M/mm3 (4.00-5.60); RDW 13.6 % (11.9-15.9); WHITE BLOOD COUNT 7.4 K/mm3 (4.0-10.0)
[2019-02-06 17:04] LABS: BILIRUBIN,TOTAL 1.1 mg/dL (0.2-1); BLOOD UREA NITROGEN 22.2 mg/dL (7-18); CALCIUM 9.3 mg/dL (8.5-10.1); POTASSIUM 4.3 mmol/L (3.5-5.1); TOT PROT 7.2 g/dl (6.4-8.2)
[2019-02-06] MEDS: chlordiazePOXIDE HCL 25 MG CAPSULE PO SCH ×2 (17:31→22:33)
[2019-02-06] MEDS: THIAMINE HCL 100 MG TABLET (FP) PO SCH (22:33)
[2019-02-06] MEDS: NICOTINE POLACRILEX 2 MG GUM BUC PRN (22:59)
[2019-02-07] MEDS: chlordiazePOXIDE HCL 25 MG CAPSULE PO SCH ×4 (05:31→22:36)
--- NOTE | 2019-02-07 08:24 | CONSULT ---
[facility] Psychiatric Consult - Data Date of interview: 02/07/19 Admission source: Self-refered Identifying data: Mr Sam is a 28 years old single Black male, unemployed receiving SSI, domiciled seeking detox treatment for alcohol opioid, cocaine and cannabis Substance Abuse History: Reports history of alcohol, heroin, cocaine and marijuana use. Refer to addiction counselor's summary for further information Medical History: Unremarble. Smokes 6 cigarettes daily Psychiatric History: Reports that his first psychiatric contact was at age 16 when he was admitted to [facility] for auditory hallucinations. He was diagnosed with Schizoaffective Disorder and started on Hadol. Reports multiple subsequent psychiatric hospitalizations at various institutions including [facility], [facility] and most recently in Dec 2018 at [facility] for auditory hallucinations. He was discharged on January 19, 2019 on Invega Sustena which was administered to him on 01/18/19. Prior to recent admission, he was on Cogentin 0.5 mg/bid, Paliperidone ER 9 mg/day, Depakote 500 mg/bid and Trazadone 50 mg/hs. External medication history shows scripts for 14 days supply of these medications filled at [facility] on 01/06/19. Patient told inspector automatic typewriter that these scripts were filled while he was in the hospital. He no longer wants to take these medication, he only wants to take the Invega injection. Reports receiving outpatient psychiatric treatment at [facility]. Told inspector automatic typewriter that he missed his scheduled psychiatric appointment on Wednesday02/03/19. Denies previous suicidal attempt. At present, denies experiencing psychotic, manic or depressive symptoms, S/H idetions. Physical/Sexual Abuse/Trauma History: Denies history of emotional, physical or sexual abuse as well as DV relationship Additional Comment: Denies criminal history Mental Status Exam - Mental Status Exam Alert and Oriented to: Time, Place, Person Cognitive Function: Fair Patient Appearance: Well Groomed Mood: Happy Affect: Blunted Patient Behavior: Cooperative Speech Pattern: Clear Voice Loudness: Normal Thought Process: Intact, Goal Oriented Hallucinations: Denies Suicidal Ideation: Denies Homicidal Ideation: Denies Insight/Judgement: Good, Poor Sleep: Well Appetite: Good (0.) Muscle strength/Tone: Normal Gait/Station: Spastic Psychiatric Findings - Problem List ([place] 1, 2,3) (1) Schizoaffective disorder Current Visit: Yes Status: Chronic (2) Alcohol dependence with uncomplicated withdrawal Current Visit: No Status: Acute (3) Opioid dependence with withdrawal Current Visit: No Status: Acute (4) Cocaine dependence Current Visit: Yes Status: Acute (5) Cannabis dependence Current Visit: Yes Status: Acute (6) Nicotine dependence Current Visit: Yes Status: Chronic - Initial Treatment Plan Initial Treatment Plan: Patient to receive next injection for Kaushik Parkena on 02/15/19. Continue inpatient detoxification
[2019-02-07] MEDS ORDERED: METHADONE HCL 5 MG TABLET (FOR DETOX USE ONLY) PO ONE (10:00)
--- NOTE | 2019-02-07 10:15 | PN ---
S CIWA - CIWA Score Nausea/Vomitin-Mild Nausea/No Vomiting Muscle Tremors: 1-None Visible, but [place] Anxiety: 2 Agitation: 2 Paroxysmal Sweats: 1-Minimal Palms Moist Orientation: 0-Oriented Tacttile Disturbances: 0-None Auditory Disturbances: 0-None Visual Disturbances: 0-None Headache: 2-Mild CIWA-Ar Total Score: 9 [facility] COWS - Scale Resting Pulse: 0= [place] 80 or Below Sweatin= No chills or Flushing Restless Observation: 1= Difficult to Sit Still Pupil Size: 1= Pupils >than Normal Bone or Joint Aches: 2= Severe Diffuse Aches Runny Nose/ Eye Tearin= Nasal Congestion GI Upset > 30mins: 1= Stomach Cramp Tremor Observation of Outstretched Hands: 2= Slight Tremor Visible Yawning Observation: 1= 1-2x During Session Anxiety or Irritability: 2=Irritable/Anxious Goose Flesh Skin: 0=Smooth Skin COWS Score: 11 [facility] Progress Note (SOAP) Subjective: alert,irritable,anxious,interrupted sleep,tremor,pain in he body and back Objective: 02/07/19 10:13 Vital Signs Temperature 98.3 F 02/07/19 09:37 Pulse Rate 54 L 02/07/19 09:37 Respiratory Rate 18 02/07/19 09:37 Blood Pressure 109/59 L 02/07/19 09:37 O2 Sat by Pulse Oximetry (%) Laboratory Last Values WBC 7.4 K/mm3 (4.0-10.0) 02/06/19 14:00 RBC 4.25 M/mm3 (4.00-5.60) 02/06/19 14:00 Hgb 13.8 GM/dL (11.7-16.9) 02/06/19 14:00 Hct 41.6 % (35.4-49) 02/06/19 14:00 MCV 97.9 fl (80-96) H 02/06/19 14:00 MCH 32.5 pg (25.7-33.7) 02/06/19 14:00 MCHC 33.2 g/dl (32.0-35.9) 02/06/19 14:00 RDW 13.6 % (11.9-15.9) 02/06/19 14:00 Plt Count 226 K/MM3 (134-434) D 02/06/19 14:00 MPV 8.0 fl (7.5-11.1) 02/06/19 14:00 Sodium 142 mmol/L (136-145) 02/06/19 14:00 Potassium 4.3 mmol/L (3.5-5.1) 02/06/19 14:00 Chloride 104 mmol/L (98-107) 02/06/19 14:00 Carbon Dioxide 27 mmol/L (21-32) 02/06/19 14:00 Anion Gap 11 MMOL/L (8-16) 02/06/19 14:00 BUN 22.2 mg/dL (7-18) H 02/06/19 14:00 Creatinine 1.0 mg/dL (0.55-1.3) 02/06/19 14:00 Est GFR (CKD-EPI)AfAm 117.36 02/06/19 14:00 Est GFR (CKD-EPI)NonAf 101.26 02/06/19 14:00 Random Glucose 85 mg/dL (74-106) 02/06/19 14:00 Calcium 9.3 mg/dL (8.5-10.1) 02/06/19 14:00 Total Bilirubin 1.1 mg/dL (0.2-1) H 02/06/19 14:00 AST 24 U/L (15-37) 02/06/19 14:00 ALT 34 U/L (13-61) 02/06/19 14:00 Alkaline Phosphatase 54 U/L (45-117) 02/06/19 14:00 Total Protein 7.2 g/dl (6.4-8.2) 02/06/19 14:00 Albumin 4.0 g/dl (3.4-5.0) 02/06/19 14:00 RPR Titer Nonreactive (NONREACTIVE) 02/06/19 14:00 Assessment: 02/07/19 10:14 withdrawal symptom Plan: continue detox methadone and librium regimen,encourage oral fluid,bun is 22.2 probly due to dehydaration
[2019-02-07] MEDS: PRENATAL VITAMINS W/ FOLIC ACID TABLET (FP) PO SCH (10:54)
[2019-02-07] MEDS: NICOTINE POLACRILEX 2 MG GUM BUC PRN (11:05)
[2019-02-07] MEDS: MAG HYDROX/AL HYDROX/SIMETH 30 ML UNIT-DOSE CUP PO PRN (17:32)
[2019-02-07] MEDS: THIAMINE HCL 100 MG TABLET (FP) PO SCH (22:35)
[2019-02-08] MEDS: chlordiazePOXIDE HCL 25 MG CAPSULE PO SCH ×4 (05:56→22:18)
--- NOTE | 2019-02-08 09:40 | PN ---
[facility] CIWA - CIWA Score Nausea/Vomitin-Mild Nausea/No Vomiting Muscle Tremors: 1-None Visible, but [place] Anxiety: 2 Agitation: 2 Paroxysmal Sweats: No Perspiration Orientation: 0-Oriented Tacttile Disturbances: 1-Very Mild Itch/Numbness Auditory Disturbances: 0-None Visual Disturbances: 0-None Headache: 2-Mild CIWA-Ar Total Score: 9 [facility] COWS - Scale Resting Pulse: 0= [place] 80 or Below Sweatin= No chills or Flushing Restless Observation: 1= Difficult to Sit Still Pupil Size: 1= Pupils >than Normal Bone or Joint Aches: 1= Mild Discomfort Runny Nose/ Eye Tearin= Nasal Congestion GI Upset > 30mins: 1= Stomach Cramp Tremor Observation of Outstretched Hands: 2= Slight Tremor Visible Yawning Observation: 1= 1-2x During Session Anxiety or Irritability: 2=Irritable/Anxious Goose Flesh Skin: 0=Smooth Skin COWS Score: 10 [facility] Progress Note (SOAP) Subjective: alert,irritable,anxious,interrupted sleep,tremor,pain in the body and back Objective: 02/08/19 09:39 Vital Signs Temperature 98.2 F 02/08/19 09:31 Pulse Rate 72 02/08/19 09:31 Respiratory Rate 18 02/08/19 09:31 Blood Pressure 107/57 L 02/08/19 09:31 O2 Sat by Pulse Oximetry (%) Assessment: 02/08/19 09:39 withdrawal signs and symptom Plan: continue detox methadone and librium regimen
[2019-02-08] MEDS ORDERED: METHADONE HCL 10 MG TABLET (FOR DETOX USE ONLY) PO ONE (10:00)
[2019-02-08] MEDS: PRENATAL VITAMINS W/ FOLIC ACID TABLET (FP) PO SCH (10:47)
[2019-02-08] MEDS: MAG HYDROX/AL HYDROX/SIMETH 30 ML UNIT-DOSE CUP PO PRN (17:17)
[2019-02-08] MEDS: THIAMINE HCL 100 MG TABLET (FP) PO SCH (22:18)
[2019-02-09] MEDS ORDERED: chlordiazePOXIDE HCL 10 MG CAPSULE PO PRN
[2019-02-09] MEDS ORDERED: METHADONE HCL 5 MG TABLET (FOR DETOX USE ONLY) PO ONE (06:00)
[2019-02-09] MEDS: chlordiazePOXIDE HCL 10 MG CAPSULE PO SCH ×4 (06:17→22:04)
[2019-02-09] MEDS: PRENATAL VITAMINS W/ FOLIC ACID TABLET (FP) PO SCH (10:10)
--- NOTE | 2019-02-09 11:56 | PN ---
[facility] CIWA - CIWA Score Nausea/Vomitin-Mild Nausea/No Vomiting Muscle Tremors: 1-None Visible, but [place] Anxiety: 2 Agitation: 2 Paroxysmal Sweats: No Perspiration Orientation: 0-Oriented Tacttile Disturbances: 1-Very Mild Itch/Numbness Auditory Disturbances: 0-None Visual Disturbances: 0-None Headache: 1-Very Mild CIWA-Ar Total Score: 8 [facility] COWS - Scale Resting Pulse: 0= [place] 80 or Below Sweatin= No chills or Flushing Restless Observation: 1= Difficult to Sit Still Pupil Size: 1= Pupils >than Normal Bone or Joint Aches: 1= Mild Discomfort Runny Nose/ Eye Tearin= Nasal Congestion GI Upset > 30mins: 1= Stomach Cramp Tremor Observation of Outstretched Hands: 1= Tremor [place], Not Seen Yawning Observation: 1= 1-2x During Session Anxiety or Irritability: 2=Irritable/Anxious Goose Flesh Skin: 0=Smooth Skin COWS Score: 9 [facility] Progress Note (SOAP) Subjective: alert,irritable,anxious,interrupted sleep,pain in the body Objective: 02/09/19 11:55 Vital Signs Temperature 99.1 F 02/09/19 09:23 Pulse Rate 77 02/09/19 09:23 Respiratory Rate 18 02/09/19 09:23 Blood Pressure 106/59 L 02/09/19 09:23 O2 Sat by Pulse Oximetry (%) Assessment: 02/09/19 11:55 withdrawal symptom Plan: continue detox ,methadone and librium regimen
[2019-02-09] MEDS: MAG HYDROX/AL HYDROX/SIMETH 30 ML UNIT-DOSE CUP PO PRN (13:57)
[2019-02-09] MEDS: THIAMINE HCL 100 MG TABLET (FP) PO SCH (21:38)
[2019-02-10] MEDS ORDERED: chlordiazePOXIDE HCL 10 MG CAPSULE PO SCH (05:00)
--- NOTE | 2019-02-10 09:30 | DS ---
[facility] Detox Discharge Summary Admission Date: 02/06/19 Discharge Date: 02/10/19 - History Present History: Alcohol Dependence, Cannabis Dependence, Cocaine Dependence, Opioid Dependence - Physical Exam Results Vital Signs: Vital Signs Temperature 97.7 F 02/10/19 06:46 Pulse Rate 64 02/10/19 06:46 Respiratory Rate 18 02/10/19 06:46 Blood Pressure 113/64 02/10/19 06:46 O2 Sat by Pulse Oximetry (%) Pertinent Admission Physical Exam Findings: pt arrived in withdrawals Laboratory Tests 02/06/19 02/06/19 02/06/19 14:00 14:00 14:00 WBC 7.4 RBC 4.25 Hgb 13.8 Hct 41.6 MCV 97.9 H MCH 32.5 MCHC 33.2 RDW 13.6 Plt Count 226 D MPV 8.0 Sodium 142 Potassium 4.3 Chloride 104 Carbon Dioxide 27 Anion Gap 11 BUN 22.2 H Creatinine 1.0 Est GFR (CKD-EPI)AfAm 117.36 Est GFR (CKD-EPI)NonAf 101.26 Random Glucose 85 Calcium 9.3 Total Bilirubin 1.1 H AST 24 ALT 34 Alkaline Phosphatase 54 Total Protein 7.2 Albumin 4.0 RPR Titer Nonreactive labs noted aaox3 ambulating no acute distress - Treatment Hospital Course: Detox Protocol Followed, Detoxed Safely, Responded well, Discharged Condition Good, Rehab Referral Accepted Patient has Accepted a Rehab Referral to: pt referred to rehab [address] [place] [address] - Medication Discharge Medications: Ambulatory Orders Invega 02/06/19 - Diagnosis (1) Cannabis dependence Current Visit: Yes Status: Chronic (2) Cocaine dependence Current Visit: Yes Status: Chronic Qualifiers: Substance use status: uncomplicated Qualified Code(s): F14.20 - Cocaine dependence, uncomplicated (3) Schizoaffective disorder Current Visit: Yes Status: Acute (4) Nicotine dependence Current Visit: Yes Status: Chronic Qualifiers: Nicotine product type: cigarettes Substance use status: uncomplicated Qualified Code(s): F17.210 - Nicotine dependence, cigarettes, uncomplicated (5) Schizoaffective disorder Current Visit: Yes Status: Chronic (6) Alcohol dependence with uncomplicated withdrawal Current Visit: Yes Status: Chronic (7) Opioid dependence with withdrawal Current Visit: Yes Status: Chronic (8) Psychotic disorder Current Visit: No Status: Acute (9) Substance induced mood disorder Current Visit: No Status: Acute (10) Substance-induced sleep disorder Current Visit: No Status: Acute (11) Depression Current Visit: No Status: Chronic Qualifiers: Depression Type: unspecified Qualified Code(s): F32.9 - Major depressive disorder, single episode, unspecified (12) Nicotine dependence Current Visit: Yes Status: Chronic Qualifiers: Nicotine product type: cigarettes Substance use status: in withdrawal Qualified Code(s): F17.213 - Nicotine dependence, cigarettes, with withdrawal (13) Non compliance w medication regimen Current Visit: No Status: Chronic (14) Schizoaffective disorder Current Visit: No Status: Chronic - AMA Did Patient Leave Against Medical Advice: No
[2019-02-10 09:33] VITALS: BP 108/58; PULSE 78; TEMP 97.2
[2019-02-10] MEDS: PRENATAL VITAMINS W/ FOLIC ACID TABLET (FP) PO SCH (10:40)
[2019-02-11] MEDS ORDERED: chlordiazePOXIDE HCL 10 MG CAPSULE PO ONE (05:00)
== END 2019-02-10 13:15 | disposition other institution (70) | DRG 773 ==
LOC: YASAS 10:38 → Y6N 14:27
PROVIDERS: ADMIT Surgery; ATTEND Surgery
PROC: HZ2ZZZZ Detoxification Services for Substance Abuse Treatment (ICD-10-PCS; principal; 2019-02-06)
DX: F11.23 Opioid dependence with withdrawal (principal); F10.230 Alcohol dependence with withdrawal, uncomplicated; F14.20 Cocaine dependence, uncomplicated; F12.20 Cannabis dependence, uncomplicated; F17.210 Nicotine dependence, cigarettes, uncomplicated; F25.9 Schizoaffective disorder, unspecified; F19.24 Other psychoactive substance dependence with psychoactive substance-induced mood disorder; F19.282 Other psychoactive substance dependence with psychoactive substance-induced sleep disorder; F32.9 Major depressive disorder, single episode, unspecified; Z91.19 Patient's noncompliance with other medical treatment and regimen
CPT/HCPCS: 36415; 80053; 85027; 86593

== ENCOUNTER 2019-02-10 13:30 | Inpatient (IN) | payer OTHER ==
[2019-02-10] MEDS ORDERED: MAG HYDROX/AL HYDROX/SIMETH 30 ML UNIT-DOSE CUP PO PRN (14:14)
[2019-02-10] MEDS ORDERED: guaiFENesin 200 MG/10 ML 10 ML UNIT-DOSE CUPS PO PRN (14:14)
[2019-02-10] MEDS ORDERED: MENTHOL/PHENOL 1 EACH UD MM PRN (14:14)
[2019-02-10] MEDS ORDERED: MAGNESIUM CITRATE 300 ML BOTTLE PO PRN (14:14)
[2019-02-10] MEDS ORDERED: hydrOXYzine PAMOATE 50 MG CAPSULE (FP) PO PRN (14:14)
[2019-02-10] MEDS ORDERED: NICOTINE POLACRILEX 4 MG GUM BUC PRN (14:14)
[2019-02-10] MEDS ORDERED: P-EPHED 60MG/TRIPROLIDI 2.5MG TABLET PO PRN (14:14)
[2019-02-10] MEDS ORDERED: MAGNESIUM HYDROX 2400MG/30ML ORAL SUSPENSION 30 ML CUP PO PRN (14:14)
[2019-02-10] MEDS ORDERED: LOPERAMIDE HCL 2 MG CAPSULE PO PRN (14:14)
--- NOTE | 2019-02-10 14:14 | HP ---
[facility] Rehab Assess/Revision - Admission History Admitted to Rehab from[facility] - Findings Detox History & Physical reviewed: Yes Concur with findings: Yes Inpatient Rehab Admission - Rehab Decision to Admit Inpatient rehab admission?: Yes - Initial Determination Are CD services needed?: Yes Free of communicable disease: Yes Not in need of hospitalization: Yes - Rehab Admission Criteria Previous failed treatment: Yes Poor recovery environment: Yes Comorbidities: Yes Lacks judgement: Yes Patient is meeting Inpatient Rehab admission criteria:: Yes
[2019-02-10] MEDS: IBUPROFEN 400 MG TABLET (FP) PO PRN (18:39)
[2019-02-10] MEDS ORDERED: MELATONIN 5 MG TABLETS PO PRN (22:00)
[2019-02-10] MEDS: THIAMINE HCL 100 MG TABLET (FP) PO SCH (22:01)
[2019-02-11] MEDS: PRENATAL VITAMINS W/ FOLIC ACID TABLET (FP) PO SCH (09:49)
[2019-02-11] MEDS: NICOTINE 21 MG/24 HOURS TOPICAL PATCH TD SCH (09:50)
[2019-02-11] MEDS: ACETAMINOPHEN 325 MG TABLET (FP) PO PRN (16:34)
[2019-02-11] MEDS: THIAMINE HCL 100 MG TABLET (FP) PO SCH (22:26)
[2019-02-12] MEDS: ACETAMINOPHEN 325 MG TABLET (FP) PO PRN (09:51)
[2019-02-12] MEDS: NICOTINE 21 MG/24 HOURS TOPICAL PATCH TD SCH (09:51)
[2019-02-12] MEDS: PRENATAL VITAMINS W/ FOLIC ACID TABLET (FP) PO SCH (09:51)
[2019-02-12] MEDS: IBUPROFEN 400 MG TABLET (FP) PO PRN ×2 (16:45→21:49)
[2019-02-12] MEDS: THIAMINE HCL 100 MG TABLET (FP) PO SCH (21:48)
[2019-02-13 06:54] VITALS: BP 132/89; PULSE 73; TEMP 98
[2019-02-13] MEDS: NICOTINE 21 MG/24 HOURS TOPICAL PATCH TD SCH (09:11)
[2019-02-13] MEDS: PRENATAL VITAMINS W/ FOLIC ACID TABLET (FP) PO SCH (09:11)
--- NOTE | 2019-02-13 09:20 | DS ---
[facility] Rehab Discharge Summary - [facility] Rehab Discharge Summary Admission Date: 02/10/19 Discharge Date: 02/13/19 - History Present History: Alcohol dependence, Opioid dependence - Discharge Physical Exam Vital Signs: Vital Signs Temperature 98.0 F 02/13/19 06:53 Pulse Rate 73 02/13/19 06:53 Respiratory Rate 18 02/13/19 06:53 Blood Pressure 132/89 02/13/19 06:53 O2 Sat by Pulse Oximetry (%) Pertinent Admission Physical Exam Findings: Patient admitted completed detox for Opiod/ETOH withdrawal from 02/06/19-02/10/19. Admitted to rehab on 02/10/19 and now requesting to leave stating " I have to go to [place] to help my uncle move". Patient encouraged to stay in rehab and complete treatment however, patient refused to stay. Patient explained risk factors of relapse and overdose with signing out AMA and despite interventions patient continued with AMA process. ROS denies chest pain, sob, ETOH/Opiod cravings, sweating and SI/HI. PE: alert and oriented x 3 skin warm and dry +perrla, eoms intact bl car reg rhythm, rate resp neg resp distress ext no tremors, full rom - Medication Discharge Medications: Ambulatory Orders Invega 02/06/19 - Medication-Assisted Treatment (MAT) Medication-Assisted Treatment (MAT): No - Discharge Instructions Diet, activity, other medical instructions: Diet: reg Activity: ad kyleigh Other medical instructions: follow up with pcp upon d/c - AMA Did Patient Leave Against Medical Advice: Yes Additional Comments: Patient had psychiatric hx of schizoaffective disorder with multiple admissions to different psychiatric facilities. Currently treated with Haldol IM with last administration date 01/18/19. Due to patient's hx of noncompliance and Schizoaffective disorder, patient informed his decision to leave treatment is against medical advice.
== END 2019-02-13 09:10 | disposition left against medical advice (07) | DRG 770 ==
LOC: YASAS 13:30 → Y3W 13:31
PROVIDERS: ADMIT Neuromusculoskeletal Medicine & OMM; ATTEND Neuromusculoskeletal Medicine & OMM
PROC: HZ42ZZZ Group Counseling for Substance Abuse Treatment, Cognitive-Behavioral (ICD-10-PCS; principal; 2019-02-10)
DX: F11.20 Opioid dependence, uncomplicated (principal); F10.20 Alcohol dependence, uncomplicated

== ENCOUNTER 2020-01-24 14:08 | Inpatient (IN) | payer OTHER ==
--- NOTE | 2020-01-24 14:54 | BHS.RME ---
Substance Use & Tx History - Substance Use History Heroin Substance amount: 3 bags of heroin Frequency of use: Daily Substance route: Inhalation (ex: sniffing or snorting) Date of Last Use: 01/23/20 Alcohol Substance amount: 1 pint of liquor david masters/ 2 of 24 ozs of beer Frequency of use: Daily Substance route: Oral Date of Last Use: 01/23/20 - Last Treatment Date of last treatment: 02/06/19 to 02/10/19 Where was last treatment: Detox Physical/Psych/Mental Status - Behavior Eye Contact: Normal - Cooperativeness Cooperativeness: Cooperative - Thinking Thought Processes: Logical - Physical Health Problems Is patient presently having any pain?: No Does patient presently have any injuries (include location): No Does patient currently have a fever: No COWS - Scale Resting Pulse: 0= [place] 80 or Below Sweatin= Chills/Flushing Restless Observation: 1= Difficult to Sit Still Pupil Size: 1= Pupils >than Normal Bone or Joint Aches: 2= Severe Diffuse Aches Runny Nose/ Eye Tearin= Nasal Congestion GI Upset > 30mins: 1= Stomach Cramp Tremor Observation: 2= Slight Tremor Visible Yawning Observation: 1= 1-2x During Session Anxiety or Irritability: 2=Irritable/Anxious Goose Flesh Skin: 0=Smooth Skin COWS Score: 12 CIWA Nausea/Vomitin-Mild Nausea/No Vomiting Muscle Tremors: 3 Anxiety: 3 Agitation: 3 Paroxysmal Sweats: No Perspiration Orientation: 0-Oriented Tacttile Disturbances: 1-Very Mild Itch/Numbness Auditory Disturbances: 0-None Visual Disturbances: 0-None Headache: 2-Mild CIWA-Ar Total Score: 13
[2020-01-24 15:52] VITALS: BMI 23.6
--- NOTE | 2020-01-24 16:08 | HP ---
COWS - Scale Resting Pulse: 0= [place] 80 or Below Sweatin= Chills/Flushing Restless Observation: 1= Difficult to Sit Still Pupil Size: 1= Pupils >than Normal Bone or Joint Aches: 2= Severe Diffuse Aches Runny Nose/ Eye Tearin= Nasal Congestion GI Upset > 30mins: 1= Stomach Cramp Tremor Observation: 2= Slight Tremor Visible Yawning Observation: 1= 1-2x During Session Anxiety or Irritability: 2=Irritable/Anxious Goose Flesh Skin: 0=Smooth Skin COWS Score: 12 CIWA Score Nausea/Vomitin-Mild Nausea/No Vomiting Muscle Tremors: 3 Anxiety: 3 Agitation: 3 Paroxysmal Sweats: No Perspiration Orientation: 0-Oriented Tacttile Disturbances: 1-Very Mild Itch/Numbness Auditory Disturbances: 0-None Visual Disturbances: 0-None Headache: 2-Mild CIWA-Ar Total Score: 13 - Admission Criteria OASAS Guidelines: Admission for Medically Managed Detox: Requires at least one of the followin. CIWA greater than 12 2. Seizures within the past 24 hours 3. Delirium tremens within the past 24 hours 4. Hallucinations within the past 24 hours 5. Acute intervention needed for co occurring medical disorder 6. Acute intervention needed for co occurring psychiatric disorder 7. Severe withdrawal that cannot be handled at a lower level of care (continued vomiting, continued diarrhea, abnormal vital signs) requiring intravenous medication and/or fluids 8. Admitting History and Physical - Admission Chief Complaint: detox from heroin, marijuana, crack History of Present Illness: Patient is a 29 y/o male who is here for detox from heroin, marijuana, and crack. Patient last used heroin yesterday. Patient uses 3 bags a day and uses every day. Started using heroin for the first time last year. Patient used crack yesterday, smokes 4-5 bags a day. Started using crack 3 years ago. Patient denies overdose. Occasional alcohol use. Drank two days ago. Denies IV heroin use. Substance Use & Tx History - Substance Use History Heroin Substance amount: 3 bags of heroin Frequency of use: Daily Substance route: Inhalation (ex: sniffing or snorting) Date of Last Use: 01/23/20 - Last Treatment Date of last treatment: 02/06/19 to 02/10/19 Where was last treatment: Detox Patient meets inpatient criteria for Detox from heroin and crack. - Past Surgical History Additional Past Surgical History: two plates in face - Smoking History Smoking history: Current every day smoker Have you smoked in the past 12 months: Yes Aproximately how many cigarettes per day: 5 - Alcohol/Substance Use Hx Alcohol Use: Yes - Social History Usual Living Arrangement: Yes: Other (apartment alone) Occupation: none Admission ROS BHS - HPI Allergies/Adverse Reactions: Allergies Allergy/AdvReac Type Severity Reaction Status Date / Time No Known Allergies Allergy Verified 01/24/20 15:56 - Ebola screening Have you traveled outside of the country in the last 21 days: No Have you had contact with anyone from an Ebola affected area: No Have you been sick,other than usual withdrawal symptoms: No Do you have a fever: No - Review of Systems Constitutional: No Symptoms Reported Respiratory: reports: No Symptoms reported Cardiac: reports: No Symptoms Reported GI: reports: No Symptoms Reported Patient History - Patient Medical History Hx Anemia: No Hx Asthma: No Hx Chronic Obstructive Pulmonary Disease (COPD): No Hx Cancer: No Hx Cardiac Disorders: No Hx Congestive Heart Failure: No Hx Hypertension: No Hx Hypercholesterolemia: No HX Cerebrovascular Accident: No Hx Seizures: No Hx Dementia: No Hx Diabetes: No Hx Gastrointestinal Disorders: No Hx Liver Disease: No Hx Genitourinary Disorders: No Hx Sexually Transmitted Disorders: No Hx Renal Disease (ESRD): No Hx Thyroid Disease: No Hx Human Immunodeficiency Virus (HIV): No (Negative 2017) Hx Hepatitis C: No Hx Depression: Yes Hx Suicide Attempt: No Hx Bipolar Disorder: No Hx Schizophrenia: No - Patient Surgical History Past Surgical History: No Hx Neurologic Surgery: No Hx Cataract Extraction: No Hx Cardiac Surgery: No Hx Lung Surgery: No Hx Breast Surgery: No Hx Breast Biopsy: No Hx Abdominal Surgery: No Hx Appendectomy: No Hx Cholecystectomy: No Hx Genitourinary Surgery: No Hx Section: No Hx Orthopedic Surgery: No Anesthesia Reaction: No - PPD History Previous Implant?: Yes Documented Results: Negative w/o proof Implanted On Prior [facility] Admission?: Yes Date: 12/06/17 Results: 0 MM - Smoking Cessation Smoking history: Current every day smoker Have you smoked in the past 12 months: Yes Aproximately how many cigarettes per day: 5 Hx Chewing Tobacco Use: No Initiated information on smoking cessation: Yes 'Breaking Loose' booklet given: 01/24/20 - Substances abused Alcohol Substance route: Oral Frequency: Daily Amount used: 1 pint/ 2 24 oz beers Age of first use: 18 Date of last use: 01/23/20 Heroin Substance route: Inhalation Frequency: Daily Amount used: 3 bags Age of first use: 28 Date of last use: 01/23/20 Crack Substance route: Smoking Frequency: Daily Amount used: 3-4 bags Age of first use: 27 Date of last use: 01/23/20 Admission Physical Exam BHS - Vital Signs Vital Signs: Vital Signs - 24 hr 01/24/20 15:47 Temperature 98.5 F Pulse Rate 62 Respiratory 18 Rate Blood Pressure 105/60 - Physical General Appearance: Yes: No Apparent Distress, Appropriately Dressed Respiratory: Yes: Normal Breath Sounds, No Respiratory Distress, No Accessory Muscle Use Cardiology: Yes: Regular Rhythm, Regular Rate Abdominal: Yes: Normal Bowel Sounds, Flat Musculoskeletal: Yes: Gait Steady - Diagnostic (1) Schizoaffective disorder Current Visit: Yes Status: Acute (2) Opioid dependence with withdrawal Current Visit: Yes Status: Chronic Breathalyzer - Breathalyzer Breathalyzer: 0 Vital Signs - Vital Signs Vital signs refused: No Temperature: 98.5 F Temperature source: Oral Pulse Rate: 62 Respiratory Rate: 18 Blood Pressure: 105/60 - Height Height: 5 ft 9 in - Weight Weight: 72.575 kg - BMI Body Mass Index (BMI): 23.6 Urine Drug Screen - Test Device Lot number: [id number] Expiration date: 09/05/21 - Control Is test valid?: Yes - Results Drug screen NEGATIVE: No Urine drug screen results: THC-Marijuana, CHIRAG-Cocaine, MOP-Opiates Inpatient Rehab Admission - Rehab Decision to Admit Inpatient rehab admission?: No
[2020-01-24] MEDS ORDERED: METHADONE HCL 10 MG TABLET (FOR DETOX USE ONLY) PO ONE (16:12)
[2020-01-24] MEDS ORDERED: ACETAMINOPHEN 325 MG TABLET (FP) PO PRN ×2 (16:12)
[2020-01-24] MEDS ORDERED: BISMUTH SUBSALICYLATE 524 MG/30 ML UD PO PRN (16:12)
[2020-01-24] MEDS ORDERED: MENTHOL/PHENOL 1 EACH UD MM PRN (16:12)
[2020-01-24] MEDS ORDERED: NICOTINE POLACRILEX 2 MG GUM BUC PRN (16:12)
[2020-01-24] MEDS ORDERED: METHOCARBAMOL 500 MG TABLET PO PRN (16:12)
[2020-01-24] MEDS ORDERED: MAG HYDROX/AL HYDROX/SIMETH 30 ML UNIT-DOSE CUP PO PRN (16:12)
[2020-01-24] MEDS ORDERED: ONDANSETRON *ODT* 4 MG TABLET SL ONE (16:12)
[2020-01-24] MEDS ORDERED: cloNIDine HCL 0.1 MG TABLET PO PRN (16:12)
[2020-01-24] MEDS ORDERED: MAGNESIUM CITRATE 300 ML BOTTLE PO PRN (16:12)
[2020-01-24] MEDS ORDERED: IBUPROFEN 400 MG TABLET (FP) PO PRN (16:12)
[2020-01-24] MEDS: NICOTINE 7 MG/24 HOURS TOPICAL PATCH TD SCH (16:48)
[2020-01-24] MEDS: PRENATAL VITAMINS W/ FOLIC ACID TABLET (FP) PO SCH (16:49)
[2020-01-24] MEDS: hydrOXYzine PAMOATE 25 MG CAPSULE (FP) PO SCH ×2 (17:45→22:22)
[2020-01-24] MEDS: MELATONIN 5 MG TABLETS PO SCH (22:22)
[2020-01-24] MEDS: THIAMINE HCL 100 MG TABLET (FP) PO SCH (22:22)
[2020-01-25] MEDS: hydrOXYzine PAMOATE 25 MG CAPSULE (FP) PO SCH ×5 (06:39→21:17)
--- NOTE | 2020-01-25 08:32 | PN ---
Teaching Attending Note Name of Resident: Tarsha Tena ATTENDING PHYSICIAN STATEMENT I saw and evaluated the patient. I reviewed the resident's note and discussed the case with the resident. I agree with the resident's findings and plan as documented. SUBJECTIVE: OBJECTIVE: ASSESSMENT AND PLAN: Agree with resident's findings and plan for detox.
[2020-01-25] MEDS ORDERED: METHADONE HCL 5 MG TABLET (FOR DETOX USE ONLY) ONE (09:14)
[2020-01-25] MEDS ORDERED: METHADONE HCL 10 MG TABLET (FOR DETOX USE ONLY) ONE (09:14)
[2020-01-25] MEDS ORDERED: METHADONE (DETOX) 20 MG, METHADONE (DETOX) 5 MG PO ONE (10:00)
[2020-01-25] MEDS: NICOTINE 7 MG/24 HOURS TOPICAL PATCH TD SCH (10:12)
[2020-01-25] MEDS: PRENATAL VITAMINS W/ FOLIC ACID TABLET (FP) PO SCH (10:12)
--- NOTE | 2020-01-25 10:53 | PN ---
BHS COWS - Scale Resting Pulse: 1= [place] 81-100 Sweatin= No chills or Flushing Restless Observation: 0= Sits Still Pupil Size: 1= Pupils >than Normal Bone or Joint Aches: 2= Severe Diffuse Aches Runny Nose/ Eye Tearin= Nasal Congestion GI Upset > 30mins: 1= Stomach Cramp Tremor Observation of Outstretched Hands: 2= Slight Tremor Visible Yawning Observation: 1= 1-2x During Session Anxiety or Irritability: 2=Irritable/Anxious Goose Flesh Skin: 0=Smooth Skin COWS Score: 11 S Progress Note (SOAP) Subjective: alert,irritable,anxious,interrupted sleep,aching pain in the body and extremities Objective: 01/25/20 10:50 Vital Signs Temperature 97.9 F 01/25/20 06:16 Pulse Rate 81 01/25/20 06:16 Respiratory Rate 18 01/25/20 06:16 Blood Pressure 112/45 L 01/25/20 06:16 O2 Sat by Pulse Oximetry (%) 96 01/25/20 06:16 01/25/20 10:52 labs pending Assessment: 01/25/20 10:52 withdrawal symptom Plan: continue detox methadone regimen,patient denied drinking every day,drink 2 to 3 times a week
[2020-01-25 10:57] LABS: HEMATOCRIT 39.7 % (35.4-49); HEMOGLOBIN 13.1 GM/dL (11.7-16.9); MCH 32.1 pg (25.7-33.7); MCHC 33.1 g/dl (32.0-35.9); MEAN PLT VOLUME 8.6 fl (7.5-11.1); PLATELET COUNT 195 K/MM3 (134-434); RBC 4.09 M/mm3 (4.00-5.60); RDW 13.6 % (11.9-15.9)
[2020-01-25 11:10] LABS: ALBUMIN 3.7 g/dl (3.4-5.0); BILIRUBIN,TOTAL 0.4 mg/dL (0.2-1); BLOOD UREA NITROGEN 13.6 mg/dL (7-18); CALCIUM 8.5 mg/dL (8.5-10.1); CREATININE 1.1 mg/dL (0.55-1.3); POTASSIUM 4.1 mmol/L (3.5-5.1); TOT PROT 6.7 g/dl (6.4-8.2)
--- NOTE | 2020-01-25 12:38 | EKG ---
Test Reason : Blood Pressure : / mmHG Vent. Rate : 054 BPM Atrial Rate : 054 BPM P-R Int : 150 ms QRS Dur : 082 ms QT Int : 408 ms P-R-T Axes : 073 078 053 degrees QTc Int : 386 ms SINUS BRADYCARDIA OTHERWISE NORMAL ECG WHEN COMPARED WITH ECG OF 21-MAR-2018 21:06, PREMATURE ATRIAL COMPLEXES ARE NO LONGER PRESENT Confirmed by ELIZABETH ROSADO MD ([id number]) on 01/25/2020 12:37:34 PM Referred By: Confirmed By:ELIZABETH ROSADO MD
[2020-01-25] MEDS: MELATONIN 5 MG TABLETS PO SCH (21:17)
[2020-01-25] MEDS: THIAMINE HCL 100 MG TABLET (FP) PO SCH (21:18)
[2020-01-26] MEDS: hydrOXYzine PAMOATE 25 MG CAPSULE (FP) PO SCH ×2 (05:16→10:13)
[2020-01-26] MEDS ORDERED: METHADONE HCL 10 MG TABLET (FOR DETOX USE ONLY) PO ONE (10:00)
[2020-01-26] MEDS: PRENATAL VITAMINS W/ FOLIC ACID TABLET (FP) PO SCH (10:12)
[2020-01-26] MEDS: NICOTINE 7 MG/24 HOURS TOPICAL PATCH TD SCH (10:12)
[2020-01-26] MEDS: diazePAM 5 MG TABLET PO PRN ×2 (10:14→19:51)
[2020-01-26] MEDS ORDERED: hydrOXYzine PAMOATE 25 MG CAPSULE (FP) PO PRN (10:17)
--- NOTE | 2020-01-26 10:45 | PN ---
S COWS - Scale Resting Pulse: 0= [place] 80 or Below Sweatin= No chills or Flushing Restless Observation: 0= Sits Still Pupil Size: 1= Pupils >than Normal Bone or Joint Aches: 2= Severe Diffuse Aches Runny Nose/ Eye Tearin= Runny Nose/Eyes GI Upset > 30mins: 2= Nausea/Diarrhea Tremor Observation of Outstretched Hands: 2= Slight Tremor Visible Yawning Observation: 1= 1-2x During Session Anxiety or Irritability: 2=Irritable/Anxious Goose Flesh Skin: 0=Smooth Skin COWS Score: 12 S Progress Note (SOAP) Subjective: alert,irritable,anxious,interrupted sleep,pain in the body and back,aching pain Objective: 01/26/20 10:43 Vital Signs Temperature 97.6 F 01/26/20 09:17 Pulse Rate 75 01/26/20 09:17 Respiratory Rate 18 01/26/20 09:17 Blood Pressure 122/69 01/26/20 09:17 O2 Sat by Pulse Oximetry (%) 100 01/26/20 09:17 01/26/20 10:43 Laboratory Last Values WBC 7.0 K/mm3 (4.0-10.0) 01/25/20 07:35 RBC 4.09 M/mm3 (4.00-5.60) 01/25/20 07:35 Hgb 13.1 GM/dL (11.7-16.9) 01/25/20 07:35 Hct 39.7 % (35.4-49) 01/25/20 07:35 MCV 97.0 fl (80-96) H 01/25/20 07:35 MCH 32.1 pg (25.7-33.7) 01/25/20 07:35 MCHC 33.1 g/dl (32.0-35.9) 01/25/20 07:35 RDW 13.6 % (11.9-15.9) 01/25/20 07:35 Plt Count 195 K/MM3 (134-434) 01/25/20 07:35 MPV 8.6 fl (7.5-11.1) 01/25/20 07:35 Sodium 141 mmol/L (136-145) 01/25/20 07:35 Potassium 4.1 mmol/L (3.5-5.1) 01/25/20 07:35 Chloride 105 mmol/L (98-107) 01/25/20 07:35 Carbon Dioxide 28 mmol/L (21-32) 01/25/20 07:35 Anion Gap 8 MMOL/L (8-16) 01/25/20 07:35 BUN 13.6 mg/dL (7-18) 01/25/20 07:35 Creatinine 1.1 mg/dL (0.55-1.3) 01/25/20 07:35 Est GFR (CKD-EPI)AfAm 103.85 01/25/20 07:35 Est GFR (CKD-EPI)NonAf 89.61 01/25/20 07:35 Random Glucose 52 mg/dL (74-106) L 01/25/20 07:35 Calcium 8.5 mg/dL (8.5-10.1) 01/25/20 07:35 Total Bilirubin 0.4 mg/dL (0.2-1) 01/25/20 07:35 AST 17 U/L (15-37) 01/25/20 07:35 ALT 26 U/L (13-61) 01/25/20 07:35 Alkaline Phosphatase 58 U/L (45-117) 01/25/20 07:35 Total Protein 6.7 g/dl (6.4-8.2) 01/25/20 07:35 Albumin 3.7 g/dl (3.4-5.0) 01/25/20 07:35 Syphilis Serology Non-reactive (NONREACTIVE) 01/25/20 07:35 COVID-19 (JOSHUA) Not detected (Not Detected) 01/24/20 23:45 Assessment: 01/26/20 10:43 withdrawal symptom Plan: continue detox methadone regimen,will add valium 10 mgs po q4hrrs prn for 72 hrs for severe withdrawal,will do bgm x 1,initial glucose is 53
[2020-01-26] MEDS: THIAMINE HCL 100 MG TABLET (FP) PO SCH (21:49)
[2020-01-26] MEDS: MELATONIN 5 MG TABLETS PO SCH (21:49)
[2020-01-27] MEDS: MAGNESIUM HYDROX 2400MG/30ML ORAL SUSPENSION 30 ML CUP PO PRN (05:36)
[2020-01-27] MEDS: diazePAM 5 MG TABLET PO PRN ×2 (08:43→20:28)
[2020-01-27] MEDS ORDERED: METHADONE HCL 5 MG TABLET (FOR DETOX USE ONLY) ONE (09:00)
[2020-01-27] MEDS ORDERED: METHADONE HCL 10 MG TABLET (FOR DETOX USE ONLY) ONE (09:00)
[2020-01-27] MEDS ORDERED: METHADONE (DETOX) 10 MG, METHADONE (DETOX) 5 MG PO ONE (10:00)
[2020-01-27] MEDS: NICOTINE 7 MG/24 HOURS TOPICAL PATCH TD SCH (10:17)
[2020-01-27] MEDS: PRENATAL VITAMINS W/ FOLIC ACID TABLET (FP) PO SCH ×2 (10:17→10:20)
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
[2020-01-27] MEDS ORDERED: BENZTROPINE MESYLATE 0.5 MG TABLET (FP) PO SCH (11:00)
--- NOTE | 2020-01-27 12:12 | PN ---
BHS COWS - Scale Resting Pulse: 0= [place] 80 or Below Sweatin= Chills/Flushing Restless Observation: 1= Difficult to Sit Still Pupil Size: 0= Normal to Room Light Bone or Joint Aches: 2= Severe Diffuse Aches Runny Nose/ Eye Tearin= None GI Upset > 30mins: 0= None Tremor Observation of Outstretched Hands: 2= Slight Tremor Visible Yawning Observation: 0= None Anxiety or Irritability: 2=Irritable/Anxious Goose Flesh Skin: 0=Smooth Skin COWS Score: 8 BHS Progress Note (SOAP) Subjective: C/O tremors, anxiety, irritability,and sweats. Objective: 01/27/20 12:11 Vital Signs 01/27/20 05:28 Temperature 97.5 F L Pulse Rate 65 Respiratory 18 Rate Blood Pressure 118/65 O2 Sat by Pulse 98 Oximetry (%) Laboratory Last Values WBC 7.0 K/mm3 (4.0-10.0) 01/25/20 07:35 RBC 4.09 M/mm3 (4.00-5.60) 01/25/20 07:35 Hgb 13.1 GM/dL (11.7-16.9) 01/25/20 07:35 Hct 39.7 % (35.4-49) 01/25/20 07:35 MCV 97.0 fl (80-96) H 01/25/20 07:35 MCH 32.1 pg (25.7-33.7) 01/25/20 07:35 MCHC 33.1 g/dl (32.0-35.9) 01/25/20 07:35 RDW 13.6 % (11.9-15.9) 01/25/20 07:35 Plt Count 195 K/MM3 (134-434) 01/25/20 07:35 MPV 8.6 fl (7.5-11.1) 01/25/20 07:35 Sodium 141 mmol/L (136-145) 01/25/20 07:35 Potassium 4.1 mmol/L (3.5-5.1) 01/25/20 07:35 Chloride 105 mmol/L (98-107) 01/25/20 07:35 Carbon Dioxide 28 mmol/L (21-32) 01/25/20 07:35 Anion Gap 8 MMOL/L (8-16) 01/25/20 07:35 BUN 13.6 mg/dL (7-18) 01/25/20 07:35 Creatinine 1.1 mg/dL (0.55-1.3) 01/25/20 07:35 Est GFR (CKD-EPI)AfAm 103.85 01/25/20 07:35 Est GFR (CKD-EPI)NonAf 89.61 01/25/20 07:35 Random Glucose 52 mg/dL (74-106) L 01/25/20 07:35 Calcium 8.5 mg/dL (8.5-10.1) 01/25/20 07:35 Total Bilirubin 0.4 mg/dL (0.2-1) 01/25/20 07:35 AST 17 U/L (15-37) 01/25/20 07:35 ALT 26 U/L (13-61) 01/25/20 07:35 Alkaline Phosphatase 58 U/L (45-117) 01/25/20 07:35 Total Protein 6.7 g/dl (6.4-8.2) 01/25/20 07:35 Albumin 3.7 g/dl (3.4-5.0) 01/25/20 07:35 Syphilis Serology Non-reactive (NONREACTIVE) 01/25/20 07:35 COVID-19 (JOSHUA) Not detected (Not Detected) 01/24/20 23:45 Labs noted. Assessment: 01/27/20 12:12 Patient was seen and evaluated at bedside, alert and oriented x3, in no acute respiratory distress. Full ROM, ambulating without assistance. Skin warm to touch without lesion. Withdrawal symptoms. Plan: Continue detox protocol.
[2020-01-27] MEDS: DIVALPROEX SODIUM 250 MG TABLET E.C. PO SCH (12:20)
[2020-01-27] MEDS: OLANZapine 5 MG TABLET PO SCH ×2 (12:20→21:24)
[2020-01-27] MEDS: DIVALPROEX SODIUM 500 MG TABLET E.C. PO SCH (21:24)
[2020-01-27] MEDS: BENZTROPINE MESYLATE 1 MG TABLET PO SCH (21:24)
[2020-01-27] MEDS: MELATONIN 5 MG TABLETS PO SCH (21:24)
[2020-01-27] MEDS: THIAMINE HCL 100 MG TABLET (FP) PO SCH (21:25)
[2020-01-28] MEDS ORDERED: METHADONE HCL 10 MG TABLET (FOR DETOX USE ONLY) PO ONE (10:00)
[2020-01-28] MEDS: BENZTROPINE MESYLATE 1 MG TABLET PO SCH ×2 (10:30→22:22)
[2020-01-28] MEDS: DIVALPROEX SODIUM 250 MG TABLET E.C. PO SCH (10:30)
[2020-01-28] MEDS: OLANZapine 5 MG TABLET PO SCH (10:30)
[2020-01-28] MEDS: NICOTINE 7 MG/24 HOURS TOPICAL PATCH TD SCH (10:31)
[2020-01-28] MEDS: PRENATAL VITAMINS W/ FOLIC ACID TABLET (FP) PO SCH (10:31)
[2020-01-28] MEDS: diazePAM 5 MG TABLET PO PRN ×2 (12:03→17:39)
--- NOTE | 2020-01-28 13:50 | PN ---
BHS COWS - Scale Resting Pulse: 2= [place] 101-120 Sweatin= No chills or Flushing Restless Observation: 0= Sits Still Pupil Size: 0= Normal to Room Light Bone or Joint Aches: 1= Mild Discomfort Runny Nose/ Eye Tearin= None GI Upset > 30mins: 0= None Tremor Observation of Outstretched Hands: 0= None Yawning Observation: 0= None Anxiety or Irritability: 1=Feels Anxious/Irritable Goose Flesh Skin: 0=Smooth Skin COWS Score: 4 BHS Progress Note (SOAP) Subjective: Feels ok Objective: 01/28/20 13:45 Last Vital Signs Temp Pulse Resp BP Pulse Ox 97.7 F 101 H 20 136/77 100 01/28/20 09:11 01/28/20 09:11 01/28/20 09:11 01/28/20 09:11 01/28/20 06:15 Elevated b/p noted: denies htn Laboratory Tests 01/24/20 01/25/20 01/25/20 23:45 07:35 07:35 WBC 7.0 RBC 4.09 Hgb 13.1 Hct 39.7 MCV 97.0 H MCH 32.1 MCHC 33.1 RDW 13.6 Plt Count 195 MPV 8.6 Sodium 141 Potassium 4.1 Chloride 105 Carbon Dioxide 28 Anion Gap 8 BUN 13.6 Creatinine 1.1 Est GFR (CKD-EPI)AfAm 103.85 Est GFR (CKD-EPI)NonAf 89.61 Random Glucose 52 L Calcium 8.5 Total Bilirubin 0.4 AST 17 ALT 26 Alkaline Phosphatase 58 Total Protein 6.7 Albumin 3.7 Syphilis Serology COVID-19 (JOSHUA) Not detected 01/25/20 07:35 WBC RBC Hgb Hct MCV MCH MCHC RDW Plt Count MPV Sodium Potassium Chloride Carbon Dioxide Anion Gap BUN Creatinine Est GFR (CKD-EPI)AfAm Est GFR (CKD-EPI)NonAf Random Glucose Calcium Total Bilirubin AST ALT Alkaline Phosphatase Total Protein Albumin Syphilis Serology Non-reactive COVID-19 (JOSHUA) Labs reviewed Assessment: 01/28/20 13:46 Withdrawal sxs Noted with elevated b/p Plan: Continue detox Encouraged PO water intake Patient scheduled for discharge tomorrow Elevated b/p: most likely anxiety/mood related, monitor b/p, start clonidine 0.1mg PO q8hr prn if b/p >=140/90
[2020-01-28] MEDS ORDERED: cloNIDine HCL 0.1 MG TABLET PO PRN (13:52)
--- NOTE | 2020-01-28 14:50 | PN ---
[facility] Progress Note Note: Psychiatric nurse practitioner note: Patient with a history of schizoaffective disorder who was started on Zyprexa 5mg BID + Cogentin 0.5mg BID + Depakote 250mg daily + 500mg HS by telegraphic typewriter mechanic after stating to telegraphic typewriter mechanic that he "only takes xanax" but has an extensive history of psychiatric hospitalizations. Patient able to tolerate medications without complaints of side effects. Patient with moments of irritability and speaking negatively to nursing staff. Patient in agreement with an increase of medication. Will increase Depakote morning dose to 500mg daily and evening Zyprexa dose to 10mg HS. Benefits and side effects discussed. Verbal consent given.
[2020-01-28] MEDS: MAGNESIUM HYDROX 2400MG/30ML ORAL SUSPENSION 30 ML CUP PO PRN (17:38)
[2020-01-28] MEDS ORDERED: OLANZapine 10 MG TABLET PO SCH (22:00)
[2020-01-28] MEDS: DIVALPROEX SODIUM 500 MG TABLET E.C. PO SCH (22:21)
[2020-01-28] MEDS: THIAMINE HCL 100 MG TABLET (FP) PO SCH (22:21)
[2020-01-28] MEDS: MELATONIN 5 MG TABLETS PO SCH (23:32)
[2020-01-29] MEDS ORDERED: METHADONE HCL 5 MG TABLET (FOR DETOX USE ONLY) PO ONE (06:00)
[2020-01-29] MEDS ORDERED: DIVALPROEX SODIUM 500 MG TABLET E.C. PO SCH ×2 (10:00→11:00)
[2020-01-29] MEDS ORDERED: OLANZapine 5 MG TABLET PO SCH (10:00)
[2020-01-29 10:04] VITALS: BP 112/69; PULSE 91; TEMP 98
[2020-01-29] MEDS: PRENATAL VITAMINS W/ FOLIC ACID TABLET (FP) PO SCH (10:12)
[2020-01-29] MEDS: BENZTROPINE MESYLATE 1 MG TABLET PO SCH (10:13)
[2020-01-29] MEDS: NICOTINE 7 MG/24 HOURS TOPICAL PATCH TD SCH (10:14)
--- NOTE | 2020-01-29 13:08 | PN ---
BHS COWS - Scale Resting Pulse: 1= [place] 81-100 Sweatin= No chills or Flushing Restless Observation: 0= Sits Still Pupil Size: 0= Normal to Room Light Bone or Joint Aches: 0= None Runny Nose/ Eye Tearin= None GI Upset > 30mins: 0= None Tremor Observation of Outstretched Hands: 0= None Yawning Observation: 0= None Anxiety or Irritability: 1=Feels Anxious/Irritable Goose Flesh Skin: 0=Smooth Skin COWS Score: 2 BHS Progress Note (SOAP) Subjective: alert,no complaint Objective: 01/29/20 13:09 Vital Signs Temperature 98.0 F 01/29/20 09:02 Pulse Rate 91 H 01/29/20 09:02 Respiratory Rate 17 01/29/20 09:02 Blood Pressure 112/69 01/29/20 09:02 O2 Sat by Pulse Oximetry (%) 100 01/29/20 09:02 01/29/20 13:11 detox completed ,no withdrawal symptom Assessment: 01/29/20 13:13 no withdrawal symptom Plan: detox completed,no withdrawal symptom,stable for discharge to rehab,patient has positive ppd over 10 mm,will get chest xray in rehab
--- NOTE | 2020-01-29 13:18 | DS ---
[facility] Detox Discharge Summary Admission Date: 01/24/20 Discharge Date: 01/29/20 - History Present History: Cannabis Dependence, Opioid Dependence Pertinent Past History: alert,oriented x 3 ambulation on the unit lung clear on auscultation abdomen soft,no distension,no pain no swelling in the leg stable for discharge,no withdrawal symptom total time of discharge 35 minutes follow up with after care program [facility] positive ppd will get chest xray today in rehab - Physical Exam Results Vital Signs: Vital Signs Temperature 98.0 F 01/29/20 09:02 Pulse Rate 91 H 01/29/20 09:02 Respiratory Rate 17 01/29/20 09:02 Blood Pressure 112/69 01/29/20 09:02 O2 Sat by Pulse Oximetry (%) 100 01/29/20 09:02 Pertinent Admission Physical Exam Findings: withdrawal signs and symptom Laboratory Last Values WBC 7.0 K/mm3 (4.0-10.0) 01/25/20 07:35 RBC 4.09 M/mm3 (4.00-5.60) 01/25/20 07:35 Hgb 13.1 GM/dL (11.7-16.9) 01/25/20 07:35 Hct 39.7 % (35.4-49) 01/25/20 07:35 MCV 97.0 fl (80-96) H 01/25/20 07:35 MCH 32.1 pg (25.7-33.7) 01/25/20 07:35 MCHC 33.1 g/dl (32.0-35.9) 01/25/20 07:35 RDW 13.6 % (11.9-15.9) 01/25/20 07:35 Plt Count 195 K/MM3 (134-434) 01/25/20 07:35 MPV 8.6 fl (7.5-11.1) 01/25/20 07:35 Sodium 141 mmol/L (136-145) 01/25/20 07:35 Potassium 4.1 mmol/L (3.5-5.1) 01/25/20 07:35 Chloride 105 mmol/L (98-107) 01/25/20 07:35 Carbon Dioxide 28 mmol/L (21-32) 01/25/20 07:35 Anion Gap 8 MMOL/L (8-16) 01/25/20 07:35 BUN 13.6 mg/dL (7-18) 01/25/20 07:35 Creatinine 1.1 mg/dL (0.55-1.3) 01/25/20 07:35 Est GFR (CKD-EPI)AfAm 103.85 01/25/20 07:35 Est GFR (CKD-EPI)NonAf 89.61 01/25/20 07:35 Random Glucose 52 mg/dL (74-106) L 01/25/20 07:35 Calcium 8.5 mg/dL (8.5-10.1) 01/25/20 07:35 Total Bilirubin 0.4 mg/dL (0.2-1) 01/25/20 07:35 AST 17 U/L (15-37) 01/25/20 07:35 ALT 26 U/L (13-61) 01/25/20 07:35 Alkaline Phosphatase 58 U/L (45-117) 01/25/20 07:35 Total Protein 6.7 g/dl (6.4-8.2) 01/25/20 07:35 Albumin 3.7 g/dl (3.4-5.0) 01/25/20 07:35 Syphilis Serology Non-reactive (NONREACTIVE) 01/25/20 07:35 COVID-19 (JOSHAU) Not detected (Not Detected) 01/24/20 23:45 Vital Signs Temperature 98.0 F 01/29/20 09:02 Pulse Rate 91 H 01/29/20 09:02 Respiratory Rate 17 01/29/20 09:02 Blood Pressure 112/69 01/29/20 09:02 O2 Sat by Pulse Oximetry (%) 100 01/29/20 09:02 - Treatment Hospital Course: Detox Protocol Followed, Detoxed Safely, Responded well, D ischarged Condition Good, Rehab Referral Accepted Patient has Accepted a Rehab Referral to: [facility] - Medication Discharge Medications: Ambulatory Orders Divalproex [Depakote -] 500 mg PO BID 01/24/20 Olanzapine [Zyprexa] 5 mg PO DAILY 01/24/20 Benztropine Mesylate [Cogentin -] 0.5 mg PO BID 01/29/20 Olanzapine [Zyprexa] 10 mg PO HS 01/29/20 - Diagnosis (1) Opioid dependence with withdrawal Current Visit: Yes Status: Chronic (2) Cannabis dependence Current Visit: No Status: Chronic (3) Nicotine dependence Current Visit: No Status: Chronic Qualifiers: Nicotine product type: cigarettes Substance use status: in withdrawal Qualified Code(s): F17.213 - Nicotine dependence, cigarettes, with withdrawal (4) Schizoaffective disorder Current Visit: No Status: Chronic (5) Positive PPD Current Visit: Yes Status: Acute - AMA Did Patient Leave Against Medical Advice: No
== END 2020-01-29 12:30 | disposition home or self-care (01) | DRG 773 ==
LOC: YASAS 14:08 → Y6N 15:56
PROVIDERS: ADMIT Allergy & Immunology; ATTEND Allergy & Immunology
PROC: HZ2ZZZZ Detoxification Services for Substance Abuse Treatment (ICD-10-PCS; principal; 2020-01-24)
DX: F11.23 Opioid dependence with withdrawal (principal); F10.230 Alcohol dependence with withdrawal, uncomplicated; F14.20 Cocaine dependence, uncomplicated; F12.20 Cannabis dependence, uncomplicated; F17.210 Nicotine dependence, cigarettes, uncomplicated; F25.9 Schizoaffective disorder, unspecified; F19.24 Other psychoactive substance dependence with psychoactive substance-induced mood disorder; R03.0 Elevated blood-pressure reading, without diagnosis of hypertension; R76.11 Nonspecific reaction to tuberculin skin test without active tuberculosis; Z56.0 Unemployment, unspecified
CPT/HCPCS: 36415; 80053; 85027; 86780; 93005; 93010; U0003

== ENCOUNTER 2020-01-29 12:44 | Inpatient (IN) | payer OTHER ==
--- NOTE | 2020-01-29 14:05 | HP ---
[facility] Rehab Assess/Revision - Admission History Admitted to Rehab from: [facility] [place] - Vital signs Vital Signs: Vital Signs Period Temp Pulse Resp BP Sys/Allison Pulse Ox Last 24 Hr 103 18 116/71 95 - Findings Detox History & Physical reviewed: Yes Concur with findings: Yes Comments/Additional Findings: Alert o x 3. nad. oob ambulating with steady gait. Inpatient Rehab Admission - Rehab Decision to Admit Inpatient rehab admission?: Yes - Initial Determination Are CD services needed?: Yes Free of communicable disease: Yes Not in need of hospitalization: Yes - Rehab Admission Criteria Previous failed treatment: Yes Poor recovery environment: Yes Comorbidities: Yes Lacks judgement: Yes Patient is meeting Inpatient Rehab admission criteria:: Yes
[2020-01-29] MEDS ORDERED: guaiFENesin 200 MG/10 ML 10 ML UNIT-DOSE CUPS PO PRN (14:06)
[2020-01-29] MEDS ORDERED: P-EPHED 60MG/TRIPROLIDI 2.5MG TABLET PO PRN (14:06)
[2020-01-29] MEDS ORDERED: ACETAMINOPHEN 325 MG TABLET (FP) PO PRN (14:06)
[2020-01-29] MEDS ORDERED: MAGNESIUM HYDROX 2400MG/30ML ORAL SUSPENSION 30 ML CUP PO PRN (14:06)
[2020-01-29] MEDS ORDERED: IBUPROFEN 400 MG TABLET (FP) PO PRN (14:06)
[2020-01-29] MEDS ORDERED: NICOTINE POLACRILEX 2 MG GUM BUC PRN (14:06)
[2020-01-29] MEDS ORDERED: MAG HYDROX/AL HYDROX/SIMETH 30 ML UNIT-DOSE CUP PO PRN (14:06)
[2020-01-29] MEDS ORDERED: MENTHOL/PHENOL 1 EACH UD MM PRN (14:06)
[2020-01-29] MEDS ORDERED: MAGNESIUM CITRATE 300 ML BOTTLE PO PRN (14:06)
[2020-01-29] MEDS ORDERED: LOPERAMIDE HCL 2 MG CAPSULE PO PRN (14:06)
--- NOTE | 2020-01-29 18:07 | CONSULT ---
[facility] Psychiatric Consult - Data Date of interview: 01/29/20 Admission source: Transfer from [address] [place] [address]. Identifying data: Detoxification completed at [address] [place] [address]. Patient is now admitted to [address] for rehabilitation treatment (maintenenca of sobriety + management of co-morbid schizoaffective disorder). [place] issues : opioid, cocaine (crack), nicotine, cannabis. Patient is a 29 y/o AA male, single, no dependents, domiciled, unemployed and supported on SSI benefits. Substance Abuse History: Discussed with the patient. [place] profile as follows : Smoking history: Current every day smoker. Have you smoked in the past 12 months: Yes. Aproximately how many cigarettes per day: 5. Hx Chewing Tobacco Use: No. Initiated information on smoking cessation: Yes. 'Breaking Loose' booklet given: 01/24/20. - Substances abused. Alcohol. Substance route: Oral. Frequency: Daily. Amount used: 1 pint/ 2 24 oz beers. Age of first use: 18. Date of last use: 01/23/20. Heroin. Substance route: Inhalation. Frequency: Daily. Amount used: 3 bags. Age of first use: 28. Date of last use: 01/23/20. Crack. Substance route: Smoking. Frequency: Daily. Amount used: 3-4 bags. Age of first use: 27. Date of last use: 01/23/20 Medical History: Patient admits to good general health. No complaints offered. As per H + P report, the patient has two plates (hardware in facial bones). No known allergies. Psychiatric History: Patient is already known to [facility] from multiple visits to the facility. He presents with a long standing history of psychiatric hospitalizations ([facility], [facility], [facility], [facility]). Diagnosed with Schizoaffective Disorder. Onset of psychiatric disturbances : age 16. Mr Sam is known for chronic non-adherence to medications + OPD care. Patient has been managed on several formulations which include depakote + prolixin + cogentin + paliperidone (oral and injectable) + haloperidol. Questionable historian. Lost to psychiatric follow-up for an undertermined period of time. Patient denies history of suicide attempts. Physical/Sexual Abuse/Trauma History: Patient denies. Additional Comment: Urine drug screen results: THC-Marijuana, CHIRAG-Cocaine, MOP- Opiates. Noted. Mental Status Exam - Mental Status Exam Alert and Oriented to: Time, Place, Person Cognitive Function: Grossly Intact Patient Appearance: Well Groomed Mood: Withdrawn Affect: Blunted Patient Behavior: Guarded, Cooperative (superficially cooperative) Speech Pattern: Clear Voice Loudness: Normal Thought Process: Disorganized Thought Disorder: Bizarre Hallucinations: Denies Suicidal Ideation: Denies Homicidal Ideation: Denies Insight/Judgement: Poor Sleep: Well Appetite: Good Gait/Station: Normal Psychiatric Findings - Problem List ([place] 1, 2,3) (1) Opioid use disorder Current Visit: Yes Status: Chronic (2) Cannabis dependence Current Visit: Yes Status: Chronic (3) Cocaine dependence Current Visit: Yes Status: Chronic Qualifiers: Substance use status: uncomplicated Qualified Code(s): F14.20 - Cocaine dependence, uncomplicated (4) Nicotine dependence Current Visit: Yes Status: Chronic Qualifiers: Nicotine product type: cigarettes Substance use status: in withdrawal Qualified Code(s): F17.213 - Nicotine dependence, cigarettes, with withdrawal (5) Schizoaffective disorder Current Visit: Yes Status: Chronic (6) Non compliance w medication regimen Current Visit: Yes Status: Chronic - Initial Treatment Plan Initial Treatment Plan: Psychoeducation. Sleep hygiene. Support. Close observation for unpredictable behavior. Resumed medications as follows : zyprexa 5 mg po am + 10 mg po hs in combination with depakote 500 mg po bid. Side effects/benefits discussed with patient. Consent granted to
[2020-01-29] MEDS: DIVALPROEX SODIUM 500 MG TABLET E.C. PO SCH (21:33)
[2020-01-29] MEDS: traZODone HCL 50 MG TABLET (FP) PO SCH (21:33)
[2020-01-29] MEDS: MELATONIN 5 MG TABLETS PO SCH (21:34)
[2020-01-29] MEDS: DOCUSATE SODIUM 100 MG CAPSULE (FP) PO PRN (21:34)
[2020-01-29] MEDS: OLANZapine 10 MG TABLET PO SCH (21:34)
[2020-01-29] MEDS: hydrOXYzine PAMOATE 25 MG CAPSULE (FP) PO PRN (21:34)
[2020-01-29] MEDS: THIAMINE HCL 100 MG TABLET (FP) PO SCH (21:35)
[2020-01-30] MEDS: OLANZapine 10 MG TABLET PO SCH (10:39)
[2020-01-30] MEDS: NICOTINE 7 MG/24 HOURS TOPICAL PATCH TD SCH (10:49)
[2020-01-30] MEDS: DIVALPROEX SODIUM 500 MG TABLET E.C. PO SCH ×2 (10:49→21:20)
[2020-01-30] MEDS: PRENATAL VITAMINS W/ FOLIC ACID TABLET (FP) PO SCH (11:06)
--- NOTE | 2020-01-30 18:19 | PN ---
[facility] Progress Note Note: Psychiatry Attending's note (follow-up) : Chart reviewed. Medications revisited. Patient seen. Revised medication schedule, as follows : zyprexa 15 mg po hs. With patient's consent. Mr Sam is interviewed in his room. Cooperative. Noted as well groomed. Sitting in chair. Calm. " My belly hurts and I keep on passing gas ." "That's why I left the group. I don't want to upset people." Patient denies suicidal or homicidal ideation, intent or plan. Clear speech. No delusion elicited at time of this examination. Mr Sam denies experiencing hallucinations. Goal-directed. Stable mental status. Psychiatry-Liaison will follow as needed.
[2020-01-30] MEDS: MELATONIN 5 MG TABLETS PO SCH (21:20)
[2020-01-30] MEDS: traZODone HCL 50 MG TABLET (FP) PO SCH (21:20)
[2020-01-30] MEDS: DOCUSATE SODIUM 100 MG CAPSULE (FP) PO PRN (21:20)
[2020-01-30] MEDS: hydrOXYzine PAMOATE 25 MG CAPSULE (FP) PO PRN (21:20)
[2020-01-30] MEDS: THIAMINE HCL 100 MG TABLET (FP) PO SCH (21:22)
[2020-01-30] MEDS ORDERED: OLANZapine 5 MG TABLET PO SCH (22:00)
[2020-01-31 06:54] VITALS: BP 117/68; PULSE 83; TEMP 98
--- NOTE | 2020-01-31 08:51 | DS ---
[facility] Rehab Discharge Summary - [facility] Rehab Discharge Summary Admission Date: 01/29/20 Discharge Date: 01/31/20 - History Present History: Cannabis dependence, Cocaine dependence, Opioid dependence Additional Comments: Pt requested for early discharge today stating he has many personal family issues to attend to. Pt was seen this morning by his counselor, Ms Clara [place] and has been referred to follow up with CD aftercare. Pertinent Past History: Hx PPD+ Schizoaffective Disorder - Discharge Physical Exam Vital Signs: Vital Signs Temperature 98.0 F 01/31/20 06:53 Pulse Rate 83 01/31/20 06:53 Respiratory Rate 18 01/31/20 06:53 Blood Pressure 117/68 01/31/20 06:53 O2 Sat by Pulse Oximetry (%) 97 01/31/20 06:53 General:alert o x 3,denies s/h/i cardiac:s1 s2,rrr lungs:ctab MSK/Skin:oob ambulating with steady gait;no edema, skin intact. Pertinent Admission Physical Exam Findings: s/p detox - Treatment Discharge Condition: Discharge condition good, Rehabilitated safely, Outpatient referral accepted Hospital Course: Pt is a 29 y/o male that competed detox and referred to rehab on 01/29/20. Pt reports he prefers to go home today due to family issues. Pt denies s/h/i and communicated coherently to this engineering writer and nurse Ms Isabel Pickard. CD aftercare referral accepted to [facility] - Medication Discharge Medications: Ambulatory Orders Divalproex [Depakote -] 500 mg PO BID 01/24/20 Olanzapine [Zyprexa] 5 mg PO DAILY 01/24/20 Benztropine Mesylate [Cogentin -] 0.5 mg PO BID 01/29/20 Olanzapine [Zyprexa] 10 mg PO HS 01/29/20 - Medication-Assisted Treatment (MAT) Medication-Assisted Treatment (MAT): No - Discharge Instructions Diet, activity, other medical instructions: Diet:Regular Activity: oob ad kyleigh Other medical instructions:follow up with CD aftercare as scheduled with [facility].. D/w pt to follow up with primary care @ [facility] for medical management as needed. - Diagnosis (1) Cannabis dependence Current Visit: Yes Status: Chronic (2) Cocaine dependence Current Visit: Yes Status: Chronic Qualifiers: Substance use status: uncomplicated Qualified Code(s): F14.20 - Cocaine dependence, uncomplicated (3) Nicotine dependence Current Visit: Yes Status: Chronic Qualifiers: Nicotine product type: cigarettes Substance use status: uncomplicated Qualified Code(s): F17.210 - Nicotine dependence, cigarettes, uncomplicated (4) Opioid use disorder Current Visit: Yes Status: Chronic - Follow-up Referral Minutes to complete discharge: 20 - AMA Did Patient Leave Against Medical Advice: No
[2020-01-31] MEDS: DOCUSATE SODIUM 100 MG CAPSULE (FP) PO PRN (09:15)
[2020-01-31] MEDS: DIVALPROEX SODIUM 500 MG TABLET E.C. PO SCH (09:16)
[2020-01-31] MEDS: hydrOXYzine PAMOATE 25 MG CAPSULE (FP) PO PRN (09:16)
[2020-01-31] MEDS: NICOTINE 7 MG/24 HOURS TOPICAL PATCH TD SCH (09:17)
[2020-01-31] MEDS: PRENATAL VITAMINS W/ FOLIC ACID TABLET (FP) PO SCH (09:18)
== END 2020-01-31 09:55 | disposition home or self-care (01) | DRG 772 ==
LOC: YASAS 12:44 → Y5N 12:45
PROVIDERS: ADMIT Allergy & Immunology; ATTEND Allergy & Immunology
PROC: HZ42ZZZ Group Counseling for Substance Abuse Treatment, Cognitive-Behavioral (ICD-10-PCS; principal; 2020-01-29)
DX: F11.20 Opioid dependence, uncomplicated (principal); F14.20 Cocaine dependence, uncomplicated; F12.20 Cannabis dependence, uncomplicated; F17.210 Nicotine dependence, cigarettes, uncomplicated; F25.9 Schizoaffective disorder, unspecified; R76.11 Nonspecific reaction to tuberculin skin test without active tuberculosis; Z91.14 Patient's other noncompliance with medication regimen
CPT/HCPCS: 71046-TC-FY